=== PATIENT | female | born 2005 | race Caucasian/White ===

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

== ENCOUNTER 2023-01-01 18:58 | Outpatient (CLI) | payer OTHER, SELFPAY ==
[2023-01-01 19:09] VITALS: BMI 43.0
[2023-01-01 19:56] VITALS: BP 133/83; PULSE 108; RESP 18; TEMP 36.8; O2SAT 97; BMI 43.0
[2023-01-01 19:56] LABS: Microscopic, Urine URINE MICROSCOPIC (MICROSCOPIC)
[2023-01-01 19:57] LABS: Appearance,Urine CLEAR (Clear); Blood, Urine Negative (Negative); Color,Urine YELLOW (Yellow); Glucose,Urine (UA) Negative (Negative); Ketones,Urine TRACE (Negative); Leukocyte Esterase,Urine Negative (Negative); Nitrate,Urine Negative (Negative); Protein,Urine 3+ (Negative); Specific Gravity, Urine >= 1.030 (1.005-1.030)
[2023-01-01 19:58] LABS: Bilirubin,Urine 1+ (Negative)
[2023-01-01 20:10] LABS: Bacteria,Urine 2+ /lpf; Mucus,Urine 2+ /lpf; Yeast,Urine Occasional /lpf
[2023-01-01 20:13] LABS: Amphetamine/Metha Screen,Urine Negative ng/ml (<1000); Barbiturates Screen,Urine Negative ng/ml (<200); Benzodiazepines Screen,Urine Negative ng/ml (<200); Cannabinoid Screen,Urine Negative ng/ml (<50); Cocaine Screen,Urine Negative ng/ml (<300); Methadone Screen,Urine Negative ng/ml (<300); Opiate Screen,Urine Negative ng/ml (<300)
[2023-01-01 20:22] LABS: Phencyclidine Screen,Urine Negative ng/ml (<25)
== END 2023-01-01 20:15 | disposition home or self-care (01) ==
LOC: OBOUT 19:00 → OB 19:00
PROVIDERS: PCP Nurse Practitioner Family; Visit Provider Nurse Practitioner Obstetrics & Gynecology
DX: Z34.93 Encounter for supervision of normal pregnancy, unspecified, third trimester (principal); Z3A.39 39 weeks gestation of pregnancy
CPT/HCPCS: 59025; 80305; 81001; 87086; G0463

== ENCOUNTER 2023-01-02 10:19 | Outpatient (CLI) | payer OTHER, SELFPAY ==
[2023-01-02 10:28] VITALS: BMI 43.7
[2023-01-02 10:43] VITALS: BMI 43.7
== END 2023-01-02 11:42 | disposition home or self-care (01) ==
LOC: OBOUT 10:20 → OB 10:20
PROVIDERS: PCP Nurse Practitioner Family; Visit Provider Nurse Practitioner Obstetrics & Gynecology
DX: Z34.93 Encounter for supervision of normal pregnancy, unspecified, third trimester (principal); Z3A.39 39 weeks gestation of pregnancy
CPT/HCPCS: 59025; G0463

== ENCOUNTER 2023-01-03 16:52 | Inpatient (IN) | payer OTHER, SELFPAY ==
[2023-01-03 15:31] VITALS: BMI 43.2
[2023-01-03 15:32] VITALS: BP 121/68; PULSE 82; RESP 18; TEMP 36.9; O2SAT 100; BMI 43.2
[2023-01-03 17:00] LABS: Basophils % 0.3 % (0.1-2.0); Eosinophils # 0.1 K/mm3 (0.0-0.4); Eosinophils % 1.2 % (0.1-12.0); Hematocrit 32.8 % (37.0-47.0); Hemoglobin 11.2 g/dL (12.2-16.2); Lymphocytes # 2.1 K/mm3 (0.7-4.5); Lymphocytes % 19.1 % (10-50); Mean Corpuscular HGB Conc 34.3 g/dL (31.8-35.4); Mean Corpuscular Hemoglobin 26.4 pg (27.0-31.2); Mean Corpuscular Volume 77.2 fl (81-99); Mean Platelet Volume 9.3 fl (7.4-10.4); Monocytes # 0.5 K/mm3 (0.1-1.0); Neutrophils % 74.4 % (37.0-80.0); Platelet Count 306 K/mm3 (142-424); Red Blood Count 4.24 M/mm3 (4.20-5.40); Red Cell Distribution Width 15.6 % (11.5-17.5); White Blood Count 10.8 K/mm3 (4.5-13.0)
--- NOTE | 2023-01-03 17:03 | EXP.HP ---
History of Present Illness *Admission Date: 01/03/23 *Reason for visit:: Regular contractions *History of present illness: She is a 17-year-old 1 para 0 at 39 and 6 weeks gestational age. She has been seen a few times with contractions and today came in with regular contractions. She was found to be 2 to 3 cm dilated. She subsequently progressed to 6 cm. As result that she is admitted for delivery. [facility] Disclaimer: The information contained in this section may have been updated after the patient was seen, as this information can be updated by other users. Medical History Maternal obesity affecting , antepartum Screening for genetic disease carrier status Teen Family History Hyperlipidemia Hypertension Social History Smoking Status: Never smoker alcohol intake: never substance use type: denies use current occupational status: employed Travel in the last 8 weeks: None household members: family housing: house number of children: 0 Review of Systems Review of Systems Review of systems:: pertinent systems reviewed and negative unless documented below Meds Home Medications and Allergies Home Medications Medication Instructions Recorded Confirmed Type pediatric multivitamin no.76 2 tab PO DAILY Supplement 07/27/22 12/28/22 History (Flintstones Complete chewable tablet) New Prescriptions to Start Prescriptions: Allergies Allergy/AdvReac Type Severity Reaction Status Date / Time povidone-iodine Allergy Mild Verified 12/28/22 16:09 [From Betadine] soap [From Betadine] Allergy Mild Verified 12/28/22 16:09 Exam Data for Last 24 hours Vital signs and Labs for Last 24 Hours: Temp Pulse Resp BP Pulse Ox O2 Del Method 98.5 F 82 18 121/68 100 Room Air 01/03/23 15:32 01/03/23 15:32 01/03/23 15:32 01/03/23 15:32 01/03/23 15:32 01/03/23 15:32 Laboratory Results - last 24 hr 01/03/23 16:35: WBC 10.8, RBC 4.24, Hgb 11.2 L, Hct 32.8 L, MCV 77.2 L, MCH 26.4 L, MCHC 34.3, RDW 15.6, Plt Count 306, MPV 9.3, Neut % (Auto) 74.4, Lymph % (Auto) 19.1, Knox % (Auto) 5.0, Eos % (Auto) 1.2, Baso % (Auto) 0.3, Neut # (Auto) 8.0 H, Lymph # (Auto) 2.1, Knox # (Auto) 0.5, Eos # (Auto) 0.1, Baso # (Auto) 0.0 I & O for Last 24 hours: Intake & Output 01/01/23 01/02/23 01/03/23 01/04/23 11:59 11:59 11:59 11:59 Weight 244 lb Constitutional Constitutional: no acute distress *Routine HEENT Exam Head: Present normocephalic Eye: Present EOMI and PERRL ENT: Present mucous membranes moist *Routine Neck Exam Neck: Present supple; Absent lymphadenopathy *Routine Respiratory Exam Respiratory: Present CTA bilaterally *Routine Cardiovascular Exam Cardiovascular: Present RRR *Routine Abdominal Exam Abdominal: Present soft and normoactive bowel sounds; Absent tenderness *Routine Rectal Exam Rectal:: deferred *Routine Genitalia Exam Genitalia:: deferred *Routine Extremities Exam Extremities: Absent cyanosis, clubbing or edema *Routine Skin Exam Skin: Present warm; Absent rash *Routine Neurological Exam Neurological: Present alert and oriented X3 Assessment and Plan *Assessment and plan (1) Maternal obesity affecting , antepartum: Status: Acute Qualifiers: Obesity type affecting : unspecified obesity Qualified Code(s): O99.210 - Obesity complicating , unspecified trimester Category: Medical Code(s): O99.210 - Obesity complicating , unspecified trimester (2) Normal delivery: Status: Acute Category: Medical Code(s): O80 - Encounter for full-term uncomplicated delivery Plan She is admitted for delivery with regular contractions. She is now 6 cm dilated. We will expect a vaginal delivery.
[2023-01-03 17:19] LABS: Microscopic, Urine URINE MICROSCOPIC (MICROSCOPIC)
[2023-01-03 19:34] LABS: Appearance,Urine CLEAR (Clear); Bilirubin,Urine Negative (Negative); Blood, Urine TRACE-I (Negative); Color,Urine YELLOW (Yellow); Glucose,Urine (UA) Negative (Negative); Ketones,Urine Negative (Negative); Leukocyte Esterase,Urine Negative (Negative); Nitrate,Urine Negative (Negative); Protein,Urine 2+ (Negative); Specific Gravity, Urine >= 1.030 (1.005-1.030); Urobilinogen,Urine 0.2 EU/dl (0.2)
--- NOTE | 2023-01-03 19:35 | EXP.LABOR.NO ---
Labor Note Subjective: Date: 01/03/23 Time: 19:35 irregular contractions Objective: NST:: Reactive Contractions:: every 4-5 minutes Cervical Dilation:: 5-6 Effacement:: 100% Station: -2 Membranes: artificially ruptured Comment:: I ruptured membranes and there was clear fluid. Fetus: Monitoring?: Yes monitoring type:: External Assessment: Labor progressing?: Yes Cephalopelvic disproportion?: No Plan: Anesthesia for epidural?: No Continue to labor down?: Yes Plan for ?: No Continue to monitor?: Yes Start pushing?: No
[2023-01-03 20:04] LABS: Bacteria,Urine 1+ /lpf; WBC,Urine Occasional #/hpf (0-3)
--- NOTE | 2023-01-03 22:39 | EXP.LABOR.NO ---
Labor Note Subjective: Date: 01/03/23 Time: 22:39 regular contraction Objective: NST:: Non-reactive Contractions:: every 4-5 minutes Cervical Dilation:: 6 Effacement:: 90% Station: -2 Membranes: artificially ruptured Fetus: Monitoring?: Yes monitoring type:: External Assessment: Labor progressing?: No Cephalopelvic disproportion?: Yes Plan: Anesthesia for epidural?: No Continue to labor down?: No Plan for ?: Yes Continue to monitor?: Yes Start pushing?: No Comment:: She has been about 6 cm since 4 PM. She really has not changed. On examination her pelvis is extremely narrow. I have recommended that she has a . She will think about it and talk it over with her boyfriend and family.
--- NOTE | 2023-01-03 23:04 | EXP.ACUTE.PN ---
Subjective *Date: 01/03/23 *Time: 23:04 Interval history: She really has not progressed beyond 6 cm since about 4:00 this afternoon. Her pelvis is very narrow. We will go ahead with a primary lower segment transverse section. There will be a delay because of the current case in the operating room but as soon as the case is finished we will go ahead with the primary lower segment transverse section. Nonstress test is reactive. The baby does not appear to be in any distress at this point in time. I am comfortable that we can wait. We discussed the risks of surgery that includes bleeding, infection, injuries to the bowel and bladder. We discussed the rare risk of DVT. All questions were answered and consents were signed. Medical Exam Vital signs and Labs for Last 24 Hours: Vital Signs Temp Pulse Resp BP Pulse Ox O2 Del Method 01/03/23 15:32 98.5 F 82 18 121/68 100 Room Air Intake and Output 01/03/23 01/03/23 01/04/23 11:59 19:59 03:59 Other: Weight 244 lb Patient Weight 01/04/23 11:59 Weight 244 lb Laboratory Results - last 24 hr 01/03/23 15:15: Urine Color Yellow, Urine Appearance Clear, Urine pH 6.0, Ur Specific Williams >= 1.030, Urine Protein 2+, Urine Glucose (UA) Negative, Urine Ketones Negative, Urine Blood Trace-i, Urine Nitrate Negative, Urine Bilirubin Negative, Urine Urobilinogen 0.2, Ur Leukocyte Esterase Negative, Urine RBC 3-5, Urine WBC Occasional, Ur Squamous Epith Cells 5-10, Urine Bacteria 1+ 01/03/23 16:35: WBC 10.8, RBC 4.24, Hgb 11.2 L, Hct 32.8 L, MCV 77.2 L, MCH 26.4 L, MCHC 34.3, RDW 15.6, Plt Count 306, MPV 9.3, Neut % (Auto) 74.4, Lymph % (Auto) 19.1, [place] % (Auto) 5.0, Eos % (Auto) 1.2, Baso % (Auto) 0.3, Neut # (Auto) 8.0 H, Lymph # (Auto) 2.1, [place] # (Auto) 0.5, Eos # (Auto) 0.1, Baso # (Auto) 0.0, Blood Type O Positive, Antibody Screen Negative I & O for Labs for Last 24 Hours: Intake & Output 01/01/23 01/02/23 01/03/23 01/04/23 11:59 11:59 11:59 11:59 Weight 244 lb Head: Present atraumatic Neck: Present normal inspection Assessment and Plan *Assessment and plan (1) pelvic disproportion antepartum: Status: Acute Category: Medical Code(s): O33.9 - Maternal care for disproportion, unspecified (2) delivery delivered: Status: Acute Category: Medical Code(s): O82 - Encounter for delivery without indication (3) Maternal obesity affecting , antepartum: Status: Acute Qualifiers: Obesity type affecting : unspecified obesity Qualified Code(s): O99.210 - Obesity complicating , unspecified trimester Category: Medical Code(s): O99.210 - Obesity complicating , unspecified trimester Plan We will plan for a primary lower segment transverse section. Risks and benefits were discussed with the patient and her family.
[2023-01-03 23:09] LABS: Anion Gap 12.4 mEq/L (5-15); Blood Urea Nitrogen 11 mg/dl (7-17); Calcium 9.2 mg/dl (8.4-10.2); Carbon Dioxide 19 mmol/L (22.0-30.0); Chloride 107 mmol/L (98-107); Creatinine Clearance Estimated 179 mL/min (50-200); Estimated Glomerular Filt Rate 206 ml/min (>60); GFR (African American) 249 ML/MIN (>60); Glucose 72 mg/dl (74-100); Potassium 4.4 mmoL/L (3.5-5.1); Sodium 134 mmol/L (136-145)
[2023-01-04] VITALS (7 sets, daily range): BP systolic 135–154; BP diastolic 63–87; PULSE 10–125; RESP 16–22; TEMP 36.2–37.5; O2SAT 97–100
[2023-01-04 00:54] LABS: POC Glucose,Bedside 90 (70-110)
--- NOTE | 2023-01-04 01:48 | EXP.ANES.CKL ---
[facility] Disclaimer: The information contained in this section may have been updated after the patient was seen, as this information can be updated by other users. Medical History Maternal obesity affecting , antepartum Screening for genetic disease carrier status Teen Family History Hyperlipidemia Hypertension Social History Smoking Status: Never smoker alcohol intake: never substance use type: denies use current occupational status: employed Travel in the last 8 weeks: None household members: family housing: house number of children: 0 [facility] Anesthesia Checklist Patient Identification Patient Identification: Arm Band Structural Data Admitted From: Inpatient Planned Operative Procedure/s: Labor Epidural Consent for Planned Operative Procedure(s) Verified: Yes Verified Documents: Surgical Consent and History and Physical NPO Status Verified Time NPO: 00:00 Additional verifications Anesthesia Reactions: No Airway Assessment Mallampati Score:: Class II C-Spine Mobility Assessed: Yes TMJ Mobility Assessed: Yes Dentition: Good Dentition Neurological Assessment Level of Consciousness: Awake and Alert Anesthesia Plan Anesthesia Risk discussed: Yes Anesthesia Plan: Verified ASA Class: II Anesthesia Type: Epidural
--- NOTE | 2023-01-04 04:16 | EXP.OP.NOTE ---
Date of procedure: 01/04/23 Pre-op Diagnosis:: Term , pelvic disproportion, teenage Post-op Diagnosis:: Term , pelvic disproportion, teenage , occiput posterior Procedure performed:: Primary lower segment transverse section Surgeon:: Rodney Joseph MD Machine Setup Operator(s):: Dr. Vega CAMPAIGN CONSULTANT:: Other (Jesus Medina) Anesthesia: epidural Estimated blood loss (mL): 900 Clinical Note:: She is a 17-year-old 1 para 0 at 40 weeks gestational age. She came in in active labor in the afternoon of January 03, 2023. She subsequently failed to progress beyond 6 to 7 cm and pelvic disproportion was diagnosed. Her pelvis was extremely narrow. Operative findings:: She delivered a liveborn female child at 3:30 AM on the morning of January 04, 2023. The baby weighed 7 pounds 2 ounces and was 19 inches long. She had Apgars of 8 at 1 minute and 9 at 5 minutes. Ovaries and tubes appeared normal. There was a small hydatid of morganii on the left distal tube that had a long pedicle so I elected to remove this and send it to pathology. Operative note:: She was taken to the operating room where epidural anesthesia was found be adequate. She was prepped and draped in normal sterile fashion in the supine position. A Fernandez catheter was in the bladder. A Pfannenstiel skin incision was made with knife then carried through to the underlying layer of fascia with cautery. The fascia was opened in the midline with cautery and extended laterally using Molina scissors. [place] clamps were applied to the superior aspect of the fascial incision which was tented up and the underlying rectus muscles dissected off using cautery. The [place] clamps were then applied to the inferior aspect of the fascial incision which in a similar fashion was tented up and the underlying rectus muscles dissected off using cautery. The rectus muscles were then in the midline, the peritoneum identified, and entered bluntly. An Christiano retractor was then inserted into the abdominal cavity. Transverse incision was made through the uterine muscle above the bladder flap to the amnion. This incision was then extended superiorly and inferiorly using the fingers as traction. The amnion was entered sharply with knife. There was clear amniotic fluid. The 's head was then delivered atraumatically. A loose nuchal cord was then reduced. This was followed by the anterior shoulder and the rest of the 's body atraumatically. The oropharynx and nasopharynx were bulb suctioned. The infant was vigorous so we allowed the cord to continue to pulsate for approximately 1 minute. The cord was then doubly clamped and cut. The infant was then handed off to Dr. Muro who assigned Apgars of 8 at 1 minute and 9 at 5 minutes. We then obtained cord blood. Using gentle traction on the cord and fundal massage I was able to easily deliver the placenta intact. It had a normal three-vessel cord. The uterus was then cleared of clots and debris . The uterine incision was then closed using running 0 Vicryl suture in a locked fashion. A second layer of the same suture was used to imbricate the first layer. The bladder peritoneum was then closed using running 2-0 Vicryl suture in a locked fashion. Prior to closure of the peritoneum I inserted a large piece of Gelfoam along the bladder incision. The gutters and cul-de-sac were then cleared of clots and debris . Once again hemostasis was assured. The fascia was closed using running #1 Vicryl suture. The subcutaneous tissues were then irrigated with warm water followed by closure Sohan's fascia using running 2-0 Monocryl suture. The skin was closed with dissolvable mattie. I then cleaned the skin with Hibiclens. Sterile dressings were applied. We then performed a tap block under ultrasound guidance. She tolerated the procedure well and was taken to the recovery room in excellent condition. All sponge, instrument and
[2023-01-04 06:47] LABS: Hematocrit 30.9 % (37.0-47.0); Hemoglobin 10.2 g/dL (12.2-16.2); Lymphocytes # 1.2 K/mm3 (0.7-4.5); Lymphocytes % 7.3 % (10-50); Mean Corpuscular Hemoglobin 25.2 pg (27.0-31.2); Mean Corpuscular Volume 76.2 fl (81-99); Mean Platelet Volume 9.3 fl (7.4-10.4); Monocytes # 0.5 K/mm3 (0.1-1.0); Neutrophils # 14.8 K/mm3 (1.8-7.8); Neutrophils % 89.5 % (37.0-80.0); Platelet Count 299 K/mm3 (142-424); Red Blood Count 4.06 M/mm3 (4.20-5.40); Red Cell Distribution Width 15.5 % (11.5-17.5); White Blood Count 16.5 K/mm3 (4.5-13.0)
[2023-01-04 06:51] LABS: MANUAL DIFFERENTIAL MANUAL DIFFERENTIAL (MANUAL DIFF)
--- NOTE | 2023-01-04 06:55 | SUR.PHASEI ---
0423- pt shivering upon arrival to pacu. #20 to left AC w/LR infusing 40 units of pitocin. QBL @998. @ BS and notified. No new orders received. 0430-pt eating ice chips tolerated well. Pt no longer shivering. Very alert and talking. Moving lower extremities easily. 0440- 375 brown/yellow/ clear urine emptied from f/c. 0453-Detailed report called to Sheila CALDERÓN. Pt transported via bed to OB per Mirtha CALDERÓN & Crow. Left in care of Chari. Family @ BS.
--- NOTE | 2023-01-04 07:01 | SUR.OPER ---
0330-viable female born
[2023-01-04 07:20] LABS: Lymphocytes % 3 % (10-50); Monocytes % 2 % (2-9); Neutrophils % 95 % (42-76); Platelet Estimate Normal; RBC Morphology Normal; Total Cells Counted 100
--- NOTE | 2023-01-04 14:30 | EXP.ANES.I ---
[facility] Anesthesia Record Part I Anesthesia Record I Intake, IV Amount: 900 Hydration: Adequate Estimated blood loss (mL): 600 Urine output (mL): 200 Blood Pressure: 140/80 SaO2: 97 Pulse Rate: 108 Airway Patency: Patent Respiratory Rate: 18 Temperature: 97.4 F Pain scale (0-10): 0 Nausea: No Vomiting: No Patient is:: Awake and Stable Stable to PACU at:: 04:23 Comments:: Procedure and Anesthesia part 1 performed by Jeremie Medina CRNA
--- NOTE | 2023-01-04 14:32 | P.PNANES_ITS ---
[facility] Anesthesia Record Part II Anesthesia Record Part II Discharge Time: 04:53 Destination: Obstetric PACU nurse assessment reviewed?: Yes Patient Condition:: Good Anesthesia Complications:: None Swallowing reflex intact?: Yes Airway Patency: Patent Cyanosis?: No Blood Pressure: 154/83 SaO2: 99 Respiratory Rate: 22 Pulse Rate: 10 Temperature: 97.4 F Mental Status: Alert & Oriented Pain level:: 0 Nausea and/or vomitting:: None Intake, IV Amount: 0 Hydration: Adequate
[2023-01-04 15:23] LABS: Amphetamine/Metha Screen,Urine Negative ng/ml (<1000); Barbiturates Screen,Urine Negative ng/ml (<200); Benzodiazepines Screen,Urine Negative ng/ml (<200); Cannabinoid Screen,Urine Negative ng/ml (<50); Cocaine Screen,Urine Negative ng/ml (<300); Methadone Screen,Urine Negative ng/ml (<300); Opiate Screen,Urine Negative ng/ml (<300); Phencyclidine Screen,Urine Negative ng/ml (<25)
--- NOTE | 2023-01-05 05:23 | EXP.ACUTE.PN ---
Subjective *Date: 01/05/23 *Time: 05:23 Interval history: POD # 1 s/p PLTCS She is doing okay. She is exhausted. Pain is controlled. Appropriate lochia. She is breast and formula feeding. Voiding without difficulty and passing flatus. Tolerating regular diet. Denies fever/chills, chest pain and shortness of breath. No headaches or vision changes. Medical Exam Vital signs and Labs for Last 24 Hours: Vital Signs Temp Pulse Pulse Resp BP BP Pulse Ox 01/04/23 20:30 99.5 F 125 H 18 135/63 100 01/04/23 14:33 22 01/04/23 14:32 97.4 F L 108 H 18 140/80 O2 Del Method 01/04/23 20:30 Room Air 01/04/23 14:33 01/04/23 14:32 Intake and Output 01/04/23 01/04/23 01/05/23 15:59 23:59 07:59 Intake Total 900 / 900 Balance 900 / 300 Intake: Intake, Total IV Amount 900 / 900 Laboratory Results - last 24 hr 01/03/23 13:15: Urine Opiates Screen Negative, Urine Methadone Screen Negative, Ur Barbituates Screen Negative, Ur Phencyclidine Scrn Negative, Ur Amphetamines Screen Negative, U Benzodiazepines Scrn Negative, Urine Cocaine Screen Negative, U Marijuana (THC) Screen Negative 01/03/23 16:35: Blood Type O Positive, Antibody Screen Negative, Crossmatch (AHG) See Detail 01/04/23 06:14: WBC 16.5 H D, RBC 4.06 L, Hgb 10.2 L, Hct 30.9 L, MCV 76.2 L, MCH 25.2 L, MCHC 33.0, RDW 15.5, Plt Count 299, MPV 9.3, Neut % (Auto) 89.5 H, Lymph % (Auto) 7.3 L, [place] % (Auto) 3.0, Eos % (Auto) 0.0 L, Baso % (Auto) 0.0 L, Neut # (Auto) 14.8 H, Lymph # (Auto) 1.2, [place] # (Auto) 0.5, Eos # (Auto) 0.0, Baso # (Auto) 0.0, Total Counted 100, Neutrophils % (Manual) 95 H, Lymphocytes % (Manual) 3 L, Monocytes % (Manual) 2, Platelet Estimate Normal, RBC Morphology Normal I & O for Labs for Last 24 Hours: Intake & Output 01/02/23 01/03/23 01/04/23 01/05/23 23:59 23:59 23:59 23:59 Intake Total 900 / 900 Output Total 600 / 600 Balance 300 / 300 Weight 244 lb Head: Present atraumatic and normocephalic ENT: Present normal exam Neck: Present full ROM Respiratory: Present CTA bilaterally and normal respiratory effort Cardiac: Present Reg Rate and Rhythm GI: Present soft, tenderness (appropriate tenderness to palpation) and normal bowel sounds; Absent distention Comments:: Uterine fundus firm and below umbilicus, pfannenstiel incision clean/dry/intact Rectal (female): Present deferred (female): Present deferred Extremities: Present full ROM; Absent edema or calf tenderness Neuro: Present alert, awake, oriented x 3 and moves all extremities Additional Findings:: Patient has flat affect Assessment and Plan *Assessment and plan (1) delivery delivered: Status: Acute Category: Medical Code(s): O82 - Encounter for delivery without indication (2) pelvic disproportion antepartum: Status: Acute Category: Medical Code(s): O33.9 - Maternal care for disproportion, unspecified (3) Maternal obesity affecting , antepartum: Status: Acute Qualifiers: Obesity type affecting : unspecified obesity Qualified Code(s): O99.210 - Obesity complicating , unspecified trimester Category: Medical Code(s): O99.210 - Obesity complicating , unspecified trimester (4) Teen : Status: Acute Category: Medical (5) Acute blood loss anemia: Status: Acute Category: Medical Code(s): D62 - Acute posthemorrhagic anemia Plan Continue routine care Encouraged increased ambulation Will continue to evaluate for signs of blues. This morning she appears exhausted and has a flat affect. She is not wanting to get up and move. Venofer 200 mg IV x 1 dose ordered
[2023-01-05 07:19] LABS: Basophils % 0.2 % (0.1-2.0); Eosinophils % 0.1 % (0.1-12.0); Hematocrit 26.4 % (37.0-47.0); Hemoglobin 8.4 g/dL (12.2-16.2); Lymphocytes # 1.7 K/mm3 (0.7-4.5); Lymphocytes % 16.6 % (10-50); Mean Corpuscular Hemoglobin 24.9 pg (27.0-31.2); Mean Corpuscular Volume 77.8 fl (81-99); Mean Platelet Volume 9.5 fl (7.4-10.4); Monocytes # 0.5 K/mm3 (0.1-1.0); Monocytes % 5.1 % (1.7-9.3); Neutrophils # 8.2 K/mm3 (1.8-7.8); Platelet Count 250 K/mm3 (142-424); Red Blood Count 3.39 M/mm3 (4.20-5.40); Red Cell Distribution Width 15.9 % (11.5-17.5); White Blood Count 10.5 K/mm3 (4.5-13.0)
[2023-01-05 08:24] VITALS: BP 137/75; PULSE 121; RESP 17; TEMP 37.1; O2SAT 99
[2023-01-05 16:04] VITALS: BP 143/83; PULSE 141; RESP 23; TEMP 38.8; O2SAT 98
--- NOTE | 2023-01-05 16:29 | EXP.MED.CON ---
History of Present Illness *Admission Date: 01/03/23 *Reason for visit:: Delivery, Anemia due to blood loss, SIRS *History of present illness: Ms. Odom is a 17-year-old female now . Delivered via section at 39 weeks and 6 days. Delivery complicated by postdelivery hemorrhage. Did not necessitate any transfusion at this time however. Has been tachycardic since admission but developed fever this afternoon to 102. Medicine was consulted to assist with evaluation given her SIRS symptoms. On interview, patient denies nausea, vomiting, diarrhea, chest pain, shortness of breath, congestion or sore throat. She had a headache while her fever was elevated. No known sick contacts. No burning with urination. 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 Is eating dinner during my interview. Denies any increased discharge from surgical incisions or increased vaginal discharge. Otherwise feels well. [facility] Disclaimer: The information contained in this section may have been updated after the patient was seen, as this information can be updated by other users. Medical History (Updated 01/05/23 @ 18:07 by Jesus Rosa MD) Acute blood loss anemia Maternal obesity affecting , antepartum Screening for genetic disease carrier status Teen Family History Hyperlipidemia Hypertension Social History Smoking Status: Never smoker alcohol intake: never substance use type: denies use current occupational status: employed Travel in the last 8 weeks: None household members: family housing: house number of children: 0 Review of Systems Review of Systems Review of systems (narrative): 14 point review of systems performed, pertinent positives and negatives as per HPI Exam Data for Last 24 hours Vital signs and Labs for Last 24 Hours: Temp Pulse Resp BP Pulse Ox O2 Del Method 102 F H 141 H 23 143/83 H 98 Room Air 01/05/23 16:04 01/05/23 16:04 01/05/23 16:04 01/05/23 16:04 01/05/23 16:04 01/05/23 16:04 Laboratory Results - last 24 hr 01/05/23 06:54: WBC 10.5 D, RBC 3.39 L, Hgb 8.4 L, Hct 26.4 L, MCV 77.8 L, MCH 24.9 L, MCHC 32.0, RDW 15.9, Plt Count 250, MPV 9.5, Neut % (Auto) 78.0, Lymph % (Auto) 16.6, [place] % (Auto) 5.1, Eos % (Auto) 0.1, Baso % (Auto) 0.2, Neut # (Auto) 8.2 H, Lymph # (Auto) 1.7, [place] # (Auto) 0.5, Eos # (Auto) 0.0, Baso # (Auto) 0.0 I & O for Last 24 hours: Intake & Output 01/02/23 01/03/23 01/04/23 01/05/23 23:59 23:59 23:59 23:59 Intake Total 900 / 900 Output Total 600 / 600 Balance 300 / 300 Weight 110.677 kg Constitutional Constitutional: no acute distress and obese *Routine HEENT Exam Head: Present normocephalic Eye: Present EOMI and PERRL ENT: Present mucous membranes moist *Routine Neck Exam Neck: Present supple; Absent lymphadenopathy *Routine Respiratory Exam Respiratory: Present CTA bilaterally; Absent rhonchi, wheezes or crackles *Routine Cardiovascular Exam Cardiovascular: Present tachycardia; Absent murmur *Routine Abdominal Exam Abdominal: Present soft, normoactive bowel sounds and tenderness (In lower abdomen); Absent distended or rebound *Routine Rectal Exam Patient deferred: visual exam *Routine Exam Patient deferred: external exam *Routine Extremities Exam Extremities: Absent cyanosis, clubbing or edema *Routine Skin Exam Skin: Present warm; Absent rash *Routine Neurological Exam Neurological: Present alert, oriented X3 and moving all extremities; Absent altered mental status Meds Home Medications and Allergies Home Medications Medication Instructions Recorded Confirmed Type pediatric multivitamin no.76 2 tab PO DAILY Supplement 07/27/22 01/04/23 History (Flintstones Complete chewable tablet) New Prescriptions to Start Prescriptions: Allergies Allerg
[2023-01-05 16:47] LABS: MANUAL DIFFERENTIAL MANUAL DIFFERENTIAL (MANUAL DIFF)
[2023-01-05 16:49] LABS: Coronavirus 19, PCR Not Detected (NotDetected); Influenza A, PCR Not Detected (NotDetected); Influenza B, PCR Not Detected (NotDetected)
[2023-01-05 16:52] LABS: Basophils % 0.1 % (0.1-2.0); Eosinophils % 0.3 % (0.1-12.0); Hematocrit 26.3 % (37.0-47.0); Hemoglobin 8.4 g/dL (12.2-16.2); Lymphocytes # 0.9 K/mm3 (0.7-4.5); Lymphocytes % 9.6 % (10-50); Mean Corpuscular HGB Conc 31.9 g/dL (31.8-35.4); Mean Corpuscular Volume 78.2 fl (81-99); Mean Platelet Volume 9.5 fl (7.4-10.4); Monocytes # 0.4 K/mm3 (0.1-1.0); Monocytes % 3.7 % (1.7-9.3); Neutrophils # 8.4 K/mm3 (1.8-7.8); Neutrophils % 86.3 % (37.0-80.0); Platelet Count 264 K/mm3 (142-424); Red Blood Count 3.37 M/mm3 (4.20-5.40); White Blood Count 9.7 K/mm3 (4.5-13.0)
[2023-01-05 16:56] VITALS: TEMP 37.8
[2023-01-05 17:03] LABS: Chloride 104 mmol/L (98-107); Sodium 134 mmol/L (136-145)
[2023-01-05 17:04] LABS: Potassium 3.3 mmoL/L (3.5-5.1)
[2023-01-05 17:06] LABS: Alanine Aminotransferase 17 U/L (12-78); Albumin Level 2.7 g/dl (3.5-5.0); Albumin/Globulin Ratio 0.9 (1.1-1.8); Alkaline Phosphatase 162 U/L (38-126); Anion Gap 11.3 mEq/L (5-15); Aspartate Amino Transferase 23 U/L (14-36); Bilirubin,Total 0.2 mg/dl (0.2-1.3); Blood Urea Nitrogen 9 mg/dl (7-17); Calcium 8.9 mg/dl (8.4-10.2); Carbon Dioxide 22 mmol/L (22.0-30.0); Creatinine Clearance Estimated 143 mL/min (50-200); Estimated Glomerular Filt Rate 159 ml/min (>60); GFR (African American) 192 ML/MIN (>60); Glucose 83 mg/dl (74-100); Total Protein,Serum 5.7 g/dl (6.3-8.2)
[2023-01-05 17:07] LABS: Lactic Acid 1.3 mmol/L (0.7-2.1)
--- NOTE | 2023-01-05 17:09 | EXP.ACUTE.PN ---
Subjective *Date: 01/05/23 *Time: 17:09 Interval history: Patient has developed fever postoperatively. She is just 1 day postop from a . Her fever was 102 degrees. She also was tachycardic with her heart rate in the 140s. She is she denies any chest pain, shortness of breath or dysuria. She denies any calf tenderness. She denies any breast engorgement. She says that she has a headache. Medical Exam Vital signs and Labs for Last 24 Hours: Vital Signs Temp Pulse Resp BP Pulse Ox O2 Del Method 01/05/23 16:56 100.1 F H 01/05/23 16:04 102 F H 141 H 23 143/83 H 98 Room Air 01/05/23 08:24 98.7 F 121 H 17 137/75 99 Room Air 01/04/23 20:30 99.5 F 125 H 18 135/63 100 Room Air Laboratory Results - last 24 hr 01/05/23 06:54: WBC 10.5 D, RBC 3.39 L, Hgb 8.4 L, Hct 26.4 L, MCV 77.8 L, MCH 24.9 L, MCHC 32.0, RDW 15.9, Plt Count 250, MPV 9.5, Neut % (Auto) 78.0, Lymph % (Auto) 16.6, [place] % (Auto) 5.1, Eos % (Auto) 0.1, Baso % (Auto) 0.2, Neut # (Auto) 8.2 H, Lymph # (Auto) 1.7, [place] # (Auto) 0.5, Eos # (Auto) 0.0, Baso # (Auto) 0.0 01/05/23 16:35: WBC 9.7, RBC 3.37 L, Hgb 8.4 L, Hct 26.3 L, MCV 78.2 L, MCH 25.0 L, MCHC 31.9, RDW 16.0, Plt Count 264, MPV 9.5, Neut % (Auto) 86.3 H, Lymph % (Auto) 9.6 L, [place] % (Auto) 3.7, Eos % (Auto) 0.3, Baso % (Auto) 0.1, Neut # (Auto) 8.4 H, Lymph # (Auto) 0.9, [place] # (Auto) 0.4, Eos # (Auto) 0.0, Baso # (Auto) 0.0, Sodium 134 L, Potassium 3.3 L D, Chloride 104, Carbon Dioxide 22, Anion Gap 11.3, BUN 9, Creatinine 0.50 L D, Estimated Creat Clear 143, Estimated GFR 159, Est GFR ( Amer) 192 D, Glucose 83, Calcium 8.9, Total Bilirubin 0.2, AST 23, ALT 17, Alkaline Phosphatase 162 H, Total Protein 5.7 L, Albumin 2.7 L, Globulin 3.0, Albumin/Globulin Ratio 0.9 L I & O for Labs for Last 24 Hours: Intake & Output 01/03/23 01/04/23 01/05/23 01/06/23 11:59 11:59 11:59 11:59 Intake Total 900 / 900 Output Total 600 / 600 Balance -600 / -600 900 / 900 Weight 244 lb Head: Present atraumatic ENT: Present normal exam Neck: Present normal inspection Respiratory: Present normal respiratory effort; Absent accessory muscle use Cardiac: Present Reg Rate and Rhythm and Tachycardia GI: Present soft and tenderness (She says that she is tender in her abdomen); Absent distention Comments:: Although she is tender in the abdomen she says that it is less tender than it was yesterday. Her incision is clean and dry. The incision is nontender. She did have a T AP block yesterday. Rectal (female): Present deferred (female): Present deferred Extremities: Present normal inspection and full ROM; Absent tenderness or calf tenderness Skin: Present intact; Absent cyanosis, erythema, pallor or mottling Comment:: Her hemoglobin this morning was 8.4 and she is pale appearing. Neuro: Present alert and awake Assessment and Plan *Assessment and plan (1) delivery delivered: Status: Acute Category: Medical Code(s): O82 - Encounter for delivery without indication (2) Acute blood loss anemia: Status: Acute Category: Medical Code(s): D62 - Acute posthemorrhagic anemia (3) Postoperative fever: Status: Acute Category: Medical Code(s): R50.82 - Postprocedural fever Plan We will do a complete septic workup. We have consulted Dr. Rosa. We also did testing for flu and COVID. Since I was initially called her fever has come down to 101 degrees. The patient says that she feels a little better. We will continue with the workup at this point in time.
[2023-01-05 17:20] LABS: Hypochromasia 2+; Lymphocytes % 15 % (10-50); Microcytosis 1+; Monocytes % 2 % (2-9); Neutrophils % 83 % (42-76); Platelet Estimate Normal; Total Cells Counted 100
[2023-01-05 17:40] LABS: Microscopic, Urine URINE MICROSCOPIC (MICROSCOPIC)
[2023-01-05 17:43] LABS: Appearance,Urine SL CLOUDY (Clear); Bilirubin,Urine Negative (Negative); Blood, Urine 3+ (Negative); Color,Urine ORANGE (Yellow); Glucose,Urine (UA) Negative (Negative); Ketones,Urine Negative (Negative); Leukocyte Esterase,Urine 2+ (Negative); Nitrate,Urine Negative (Negative); Protein,Urine 2+ (Negative); Urobilinogen,Urine 0.2 EU/dl (0.2)
[2023-01-05 18:07] LABS: Bacteria,Urine Trace /lpf; RBC,Urine 50-100 #/hpf (0-3)
[2023-01-05 20:00] VITALS: BP 142/77; PULSE 115; RESP 18; TEMP 37.5; O2SAT 100
[2023-01-06] VITALS: TEMP 36.6
--- NOTE | 2023-01-06 09:14 | EXP.MED.FU ---
Subjective *Date: 01/06/23 *Time: 09:14 Interval history: Patient has done well overnight. No fevers documented. Labs obtained yesterday showed normal white cell count. Cultures negative at this time. Clinically patient appears well. Tolerating p.o. intake. No nausea, vomiting, headache, chest pain, shortness of breath, dysuria, redness at surgical site Exam Data for Last 24 hours Vital signs and Labs for Last 24 Hours: Temp Pulse Resp BP Pulse Ox O2 Del Method 98 F 115 H 18 142/77 H 100 Room Air 01/06/23 00:00 01/05/23 20:00 01/05/23 20:00 01/05/23 20:00 01/05/23 20:00 01/05/23 20:00 Laboratory Results - last 24 hr 01/05/23 16:35: WBC 9.7, RBC 3.37 L, Hgb 8.4 L, Hct 26.3 L, MCV 78.2 L, MCH 25.0 L, MCHC 31.9, RDW 16.0, Plt Count 264, MPV 9.5, Neut % (Auto) 86.3 H, Lymph % (Auto) 9.6 L, [place] % (Auto) 3.7, Eos % (Auto) 0.3, Baso % (Auto) 0.1, Neut # (Auto) 8.4 H, Lymph # (Auto) 0.9, [place] # (Auto) 0.4, Eos # (Auto) 0.0, Baso # (Auto) 0.0, Total Counted 100, Neutrophils % (Manual) 83 H, Lymphocytes % (Manual) 15, Monocytes % (Manual) 2, Platelet Estimate Normal, Hypochromasia 2+, Microcytosis 1+, Sodium 134 L, Potassium 3.3 L D, Chloride 104, Carbon Dioxide 22, Anion Gap 11.3, BUN 9, Creatinine 0.50 L D, Estimated Creat Clear 143, Estimated GFR 159, Est GFR ( Amer) 192 D, Glucose 83, Lactate 1.3, Calcium 8.9, Total Bilirubin 0.2, AST 23, ALT 17, Alkaline Phosphatase 162 H, Total Protein 5.7 L, Albumin 2.7 L, Globulin 3.0, Albumin/Globulin Ratio 0.9 L 01/05/23 16:45: SARS-CoV-2 (PCR) Not detected, Influenza A Untype (PCR) Not detected, Influenza Type B (PCR) Not detected 01/05/23 16:58: Urine Color [place], Urine Appearance Sl cloudy, Urine pH 6.0, Ur Specific [place] 1.010, Urine Protein 2+, Urine Glucose (UA) Negative, Urine Ketones Negative, Urine Blood 3+, Urine Nitrate Negative, Urine Bilirubin Negative, Urine Urobilinogen 0.2, Ur Leukocyte Esterase 2+ A, Urine RBC 50-100, Urine WBC 5-10, Ur Squamous Epith Cells 5-10, Urine Bacteria Trace I & O for Last 24 hours: Intake & Output 01/03/23 01/04/23 01/05/23 01/06/23 23:59 23:59 23:59 23:59 Intake Total 900 / 900 Output Total 600 / 600 Balance 300 / 300 Weight 110.677 kg Constitutional Constitutional: no acute distress and obese *Routine HEENT Exam Head: Present normocephalic Eye: Present EOMI and PERRL ENT: Present mucous membranes moist *Routine Neck Exam Neck: Present supple; Absent lymphadenopathy *Routine Respiratory Exam Respiratory: Present CTA bilaterally; Absent rhonchi, wheezes or crackles *Routine Cardiovascular Exam Cardiovascular: Present tachycardia; Absent murmur *Routine Abdominal Exam Abdominal: Present soft, normoactive bowel sounds and tenderness (In lower abdomen); Absent distended or rebound *Routine Rectal Exam Patient deferred: visual exam *Routine Exam Patient deferred: external exam *Routine Extremities Exam Extremities: Absent cyanosis, clubbing or edema *Routine Skin Exam Skin: Present warm; Absent rash *Routine Neurological Exam Neurological: Present alert, oriented X3 and moving all extremities; Absent altered mental status Assessment and Plan *Assessment and plan (1) SIRS (systemic inflammatory response syndrome): Status: Acute Category: Medical Code(s): R65.10 - Systemic inflammatory response syndrome (SIRS) of non-infectious origin without acute organ dysfunction (2) Acute blood loss anemia: Status: Acute Category: Medical Code(s): D62 - Acute posthemorrhagic anemia (3) delivery delivered: Status: Acute Category: Medical Code(s): O82 - Encounter for delivery without indication (4) Obesity: Status: Acute Qualifiers: Obesity type: unspecified obesity type Obesity classification: adult class 3 (BMI >= 40) Serious obesity comorbidity presence: without serious comorbidity Body mass index: BMI 40.0-44.9 Qualifi
--- NOTE | 2023-01-06 10:51 | EXP.DC.SUM ---
General Admission date:: 01/03/23 Discharge date: 01/06/23 HPI HPI HPI: POD # 2 s/p PLTCS She is feeling well overall. Pain controlled. She is breast and formula feeding. Light lochia. She had an episode of a fever last night that resolved after Tylenol. She admits to chills at that time but no other symptoms. States she feels well this morning. Voiding without difficulty and passing flatus. Tolerating regular diet. Ambulating well ad thanh. Denies signs of depression and anxiety. Hospital Course Hospital Course Hospital Course: Ms Rosie Odom is a 17-year-old 1/ para 0 at 39 and 6 weeks gestational age. She presented to L&D with complaint of regular contractions. She was found to be 2 to 3 cm dilated. She subsequently progressed to 6 cm. She underwent primary on 01/14/23 for failure to progress. She delivered a live female baby, baby's name is Hira, weighing 7 lb 2 oz. APGARs 8, 9. EBL 900 mL. She did well postoperatively. Pain controlled with medication. She is breast and formula feeding. Light lochia. She had an isolated fever, 102, at 1604 yesterday, 01/05/23. Evaluation for fever was negative. WBC was within normal limits. She was given 1 gram rocephin and Tylenol. Hospitalist was consulted. Cultures pending. She is feeling well and desires to go home. She is voiding without difficulty and passing flatus. Tolerating regular diet. Denies headache and vision changes. No further fever/chills. No chest pain or shortness of breath. Ambulating well ad thanh. Exam Data for Last 24 hours Vital signs and Labs for Last 24 Hours: Temp Pulse Resp BP Pulse Ox O2 Del Method 98 F 115 H 18 142/77 H 100 Room Air 01/06/23 00:00 01/05/23 20:00 01/05/23 20:00 01/05/23 20:00 01/05/23 20:00 01/05/23 20:00 Laboratory Results - last 24 hr 01/05/23 16:35: WBC 9.7, RBC 3.37 L, Hgb 8.4 L, Hct 26.3 L, MCV 78.2 L, MCH 25.0 L, MCHC 31.9, RDW 16.0, Plt Count 264, MPV 9.5, Neut % (Auto) 86.3 H, Lymph % (Auto) 9.6 L, [place] % (Auto) 3.7, Eos % (Auto) 0.3, Baso % (Auto) 0.1, Neut # (Auto) 8.4 H, Lymph # (Auto) 0.9, [place] # (Auto) 0.4, Eos # (Auto) 0.0, Baso # (Auto) 0.0, Total Counted 100, Neutrophils % (Manual) 83 H, Lymphocytes % (Manual) 15, Monocytes % (Manual) 2, Platelet Estimate Normal, Hypochromasia 2+, Microcytosis 1+, Sodium 134 L, Potassium 3.3 L D, Chloride 104, Carbon Dioxide 22, Anion Gap 11.3, BUN 9, Creatinine 0.50 L D, Estimated Creat Clear 143, Estimated GFR 159, Est GFR ( Amer) 192 D, Glucose 83, Lactate 1.3, Calcium 8.9, Total Bilirubin 0.2, AST 23, ALT 17, Alkaline Phosphatase 162 H, Total Protein 5.7 L, Albumin 2.7 L, Globulin 3.0, Albumin/Globulin Ratio 0.9 L 01/05/23 16:45: SARS-CoV-2 (PCR) Not detected, Influenza A Untype (PCR) Not detected, Influenza Type B (PCR) Not detected 01/05/23 16:58: Urine Color [place], Urine Appearance Sl cloudy, Urine pH 6.0, Ur Specific [place] 1.010, Urine Protein 2+, Urine Glucose (UA) Negative, Urine Ketones Negative, Urine Blood 3+, Urine Nitrate Negative, Urine Bilirubin Negative, Urine Urobilinogen 0.2, Ur Leukocyte Esterase 2+ A, Urine RBC 50-100, Urine WBC 5-10, Ur Squamous Epith Cells 5-10, Urine Bacteria Trace I & O for Last 24 hours: Intake & Output 01/03/23 01/04/23 01/05/23 01/06/23 23:59 23:59 23:59 23:59 Intake Total 900 / 900 Output Total 600 / 600 Balance 300 / 300 Weight 244 lb Constitutional Constitutional: no acute distress *Routine HEENT Exam Head: Present normocephalic and atraumatic Eye: Absent conjunctivae pink ENT: Present mucous membranes moist *Routine Neck Exam Neck: Present full ROM *Routine Respiratory Exam Respiratory: Present CTA bilaterally and normal respiratory effort *Routine Cardiovascular Exam Cardiovascular: Present RRR *Routine Abdominal Exam Abdominal: Present soft and normoactive bowel sounds; Absent tenderness Comments: Uterine fundus firm and below umbilicus, pfannenstiel incision clean/dry/intact
== END 2023-01-06 15:00 | disposition home or self-care (01) | DRG 787 ==
LOC: OBOUT 16:53 → OB 16:53
PROVIDERS: Internal Medicine Adolescent Medicine; Admitting Provider Nurse Practitioner Obstetrics & Gynecology; PCP Nurse Practitioner Family; Visit Provider Nurse Practitioner Obstetrics & Gynecology
PROC: 10D00Z1 Extraction of Products of Conception, Low, Open Approach (ICD-10-PCS; CPT 59514; principal; 2023-01-04 03:00)
DX: O99.214 Obesity complicating childbirth (principal); D62 Acute posthemorrhagic anemia; R65.10 Systemic inflammatory response syndrome (SIRS) of non-infectious origin without acute organ dysfunction; Z3A.39 39 weeks gestation of pregnancy; Z37.0 Single live birth; O33.9 Maternal care for disproportion, unspecified; Z3A.40 40 weeks gestation of pregnancy; O90.81 Anemia of the puerperium; O72.1 Other immediate postpartum hemorrhage; O86.4 Pyrexia of unknown origin following delivery
CPT/HCPCS: 59514; 36415; 59025; 80048; 80053; 80305; 81001; 82962; 83605; 85007; 85014; 85018; 85025; 85048; 85049; 86850; 87040; 87086; 87636; 88302; 94761; 96374; C9290; G0283; G0463; J0696; J1756; J2405

== ENCOUNTER 2023-01-27 21:32 | Emergency (ER) | payer OTHER, SELFPAY ==
[2023-01-27 21:34] VITALS: BP 121/75; PULSE 69; RESP 18; TEMP 36.8; O2SAT 96; BMI 38.2
--- NOTE | 2023-01-27 22:02 | HMH.EDGENADL ---
Discharge Plan Disposition Patient Disposition: Home, Self-Care Referrals Follow up/Referrals: Patricia Gay APRN [Primary Care Provider] - See instructions Activity Restrictions/Add. Instructions Additional Instructions/Restrictions: Call your family doctor to establish care for this visit to the emergency department and schedule follow-up within 48 hours to ensure improvement. If you have any worsening of your condition or any other concerning signs or symptoms, return to the emergency department or your primary care doctor for further evaluation. Follow-up with your flask maker regarding this visit to the emergency department as needed. Clinical Impressions Clinical Impression: Dehiscence of incision Qualifiers: Encounter type: initial encounter Qualified Code(s): T81.31XA - Disruption of external operation (surgical) wound, not elsewhere classified, initial encounter Instructions Patient Instructions: DI for Laceration Repair Discharge ED Provider: Andres Gay General Adult HPI General Chief complaint: Wound/Laceration Stated complaint: 01/04 stitch poss opened Time Seen by Provider: 01/27/23 21:42 Mode of Arrival: Family Vehicle Source of Information: Patient Limitations: No Limitations Description of Symptoms (Recalled from ER Triage Doc. by RN): Pt had a on 01/04/2023 stated that on the right side of incision there is a small open place. A scant amount of blood has been seen from underwear rubbing. She denies fever, puss, smell, and or fever. History of Present Illness HPI narrative: Is a 18-year-old female with history of recent section delivery presenting with concern for open wound. Patient states that she noticed incision was open 1 day prior to arrival. No fevers or chills, purulent drainage, or pain associated. Just worried about it being open. Related Data Allergies Allergy/AdvReac Type Severity Reaction Status Date / Time povidone-iodine Allergy Mild Verified 01/27/23 21:50 [From Betadine] soap [From Betadine] Allergy Mild Verified 01/27/23 21:50 [facility] Disclaimer: The information contained in this section may have been updated after the patient was seen, as this information can be updated by other users. Medical History Acute blood loss anemia Surgical History History of section, classical Family History Other Hyperlipidemia Hypertension Social History Smoking Status: Never smoker alcohol intake: never substance use type: denies use current occupational status: employed Travel in the last 8 weeks: None household members: family housing: house number of children: 0 ROS Obtained: Yes All systems reviewed & no additional complaints except as documented Physical Exam General General appearance: alert, in no apparent distress and other ( ) Head Head exam: atraumatic and normocephalic Eye Eye exam: Present normal appearance, PERRL and EOMI ENT ENT exam: Present mucous membranes moist Neck Neck exam: Present normal inspection, full ROM and trachea midline Respiratory Respiratory exam: Absent respiratory distress, wheezes, stridor, accessory muscle use or prolonged expiratory phase Cardiovascular Cardiovascular exam: Present regular rate and normal rhythm Abdominal Exam Abdominal exam: Present soft; Absent distention, tenderness, guarding, rebound, rigidity or normal bowel sounds Comment: Lower abdominal incision well-healing. Right most portion gaping less than 1 cm. No secondary signs of infection Extremities Exam Extremities exam: Absent edema Neurological Exam Neurological exam: Present alert, oriented X3, CN II-XII intact and normal gait; Absent motor sensory deficit Skin Skin exam: Present warm and
[2023-01-27 22:30] VITALS: BP 129/73; PULSE 65; O2SAT 98
[2023-01-27 23:20] VITALS: BP 129/73; PULSE 65; RESP 18; TEMP 36.9; O2SAT 98
== END 2023-01-27 23:20 | disposition home or self-care (01) ==
PROVIDERS: Emergency Provider Emergency Medicine; PCP Nurse Practitioner Family
DX: O90.0 Disruption of cesarean delivery wound (principal)
CPT/HCPCS: 99282

== ENCOUNTER 2024-01-16 21:12 | Emergency (ER) | payer OTHER, SELFPAY ==
[2024-01-16 21:12] VITALS: BP 145/99; PULSE 83; RESP 22; TEMP 36.9; O2SAT 100; BMI 35.4
[2024-01-16] MEDS: LACTATED RINGERS 1000ML 1,000 ML 999 ML IV (21:22)
[2024-01-16] MEDS: ONDANSETRON 4MG/2ML VIAL 4 MG IV (21:26)
[2024-01-16] MEDS: MORPHINE 4MG/ML SYRINGE 4 MG IV (21:27)
[2024-01-16 21:30] LABS: Basophils # 0.1 K/mm3 (0-0.2); Basophils % 1.1 % (0.1-2.0); Eosinophils # 0.1 K/mm3 (0.0-0.4); Eosinophils % 0.8 % (0.1-12.0); Hematocrit 46.5 % (37.0-47.0); Hemoglobin 14.7 g/dL (12.2-16.2); Lymphocytes # 4.5 K/mm3 (0.7-4.5); Lymphocytes % 35.6 % (10-50); Mean Corpuscular HGB Conc 31.6 g/dL (31.8-35.4); Mean Corpuscular Hemoglobin 28.6 pg (27.0-31.2); Mean Corpuscular Volume 90.5 fl (81-99); Mean Platelet Volume 8.1 fl (7.4-10.4); Monocytes # 0.5 K/mm3 (0.1-1.0); Monocytes % 3.9 % (1.7-9.3); Neutrophils # 7.5 K/mm3 (1.8-7.8); Neutrophils % 58.6 % (37.0-80.0); Platelet Count 442 K/mm3 (142-424); Red Blood Count 5.13 M/mm3 (4.20-5.40); Red Cell Distribution Width 13.8 % (11.5-17.5); White Blood Count 12.7 K/mm3 (4.5-13.0)
--- NOTE | 2024-01-16 21:40 | ED_ITS ---
Discharge Plan Disposition Patient Disposition: Home, Self-Care Condition: Good Prescriptions Prescriptions: New ondansetron 4 mg tablet,disintegrating 4 mg PO Q8H PRN (Reason: nausea and vomiting) 5 Days Qty: 10 0RF meloxicam 7.5 mg tablet 7.5 mg PO DAILY 10 Days Qty: 10 0RF omeprazole 20 mg capsule,delayed release(DR/EC) 20 mg PO DAILY 28 Days Qty: 28 0RF No Action Nexplanon 68 mg implant 1 implant subdermal ONCE sertraline 50 mg Tablet 50 mg PO DAILY hydrocodone-acetaminophen 5-325 mg tablet 1 tab PO Q6H PRN (Reason: post-op pain) Qty: 17 0RF Referrals Follow up/Referrals: Provider,Referral, MD [Primary Care Provider] - See instructions Activity Restrictions/Add. Instructions Additional Instructions/Restrictions: As we discussed, your ultrasound did show that you have multiple stones in your gallbladder. Your liver enzymes in comparison to prior labs are slightly elevated to the 100s. Your CT scans including scans of your chest, abdomen, pelvis, did not show any abnormal findings. Given that your pain is improving, as is your nausea, and after discussion with the general surgeon Dr. Vega, you are stable for discharge at this time. He would like you to come to his office after discharge from the emergency department to discuss next steps. I have prescribed pain medication, stomach acid reducing medication, nausea medication for you to have and use as needed. Please return with any new or worsening symptoms. Clinical Impressions Clinical Impression: Abdominal pain, epigastric Cholelithiasis Qualifiers: Cholelithiasis location: gallbladder Cholecystitis presence: without cholecystitis Biliary obstruction: without biliary obstruction Qualified Code(s): K80.20 - Calculus of gallbladder without cholecystitis without obstruction Instructions Patient Instructions: DI for Acute Abdominal Pain Print Language Print Language: Slovak Discharge ED Provider: Julio Cesar Jj Adult HPI <Caty Veronica DO - Last Filed: 01/17/24 12:00> General Chief complaint: Abdominal Pain Stated complaint: upper abd pain Time Seen by Provider: 01/16/24 21:18 Mode of Arrival: Ambulatory Source of Information: Patient Limitations: No Limitations Description of Symptoms (Recalled from ER Triage Doc. by RN): pt reports upper abd pain that started about 20 mins ago, reports she thought she had gas so she attempted to make herself vomit, no help History of Present Illness HPI narrative: This patient is a 18-year-old female who denies significant past medical history presenting to the emergency department for evaluation with concern for severe epigastric pain and shortness of breath. She states that she thought maybe she had gas that she tried to make her self vomit, but the pain continued to get worse and she felt that she could not breathe. She arrives actively panicking, so history is difficult to obtain. On medical review, it looks like he has a history of section approximately a year ago. She denies any history of cardiopulmonary or abdominal issues Related Data Home Medications ?Medication ?Instructions ?Recorded ?Confirmed etonogestrel 68 mg subdermal 1 implant subdermal ONCE 03/15/23 01/18/24 implant (Nexplanon) sertraline 50 mg tablet 50 mg PO DAILY 01/18/24 01/18/24 Previous Rx's ?Medication ?Instructions ?Recorded meloxicam 7.5 mg tablet 7.5 mg PO DAILY 10 days #10 tabs 01/17/24 omeprazole 20 mg capsule,delayed 20 mg PO DAILY 28 days #28 caps 01/17/24 release ondansetron 4 mg disintegrating 4 mg PO Q8H PRN nausea and 01/17/24 tablet vomiting 5 days #10 tabs hydrocodone 5 mg-acetaminophen 325 1 tab PO Q6H PRN post-op pain #17 01/18/24 mg tablet tabs Allergies Allergy/AdvReac Type Severity Reaction Status Date / Time povidone-iodine Allergy Mild Verified 01/18/24 09:01 [From Betadine] soap [From Betadine] Allergy Mild Verified 01/18/24 09:01 [facility] <Caty Veronica, DO - Last Filed: 01/17/24 12:00> [facility] Disclaimer: The information contained in this section may have been updated after the patient was seen, as this information can be updated by other users. Medical History Acute blood loss anemia Nexplanon insertion 02/16/23 Surgical History History of section, classical Family History Other Hyperlipidemia Hypertension Social History Smoking Status: Never smoker alcohol intake: never substance use type: denies use current occupational status: employed Travel in the last 8 weeks: None household members: family housing: house number of children: 0 <Caty Veronica DO - Last Filed: 01/17/24 12:00> ROS Obtained: Yes All systems reviewed & no additional complaints except as documented Physical Exam <Caty Veronica DO - Last Filed: 01/17/24 12:00> General General appearance: alert and anxious Comment: Actively crying, panicking, hyperventilating Head Head exam: atraumatic and normocephalic Eye Eye exam: Present normal appearance, PERRL and EOMI ENT ENT exam: Present normal exam, normal oropharynx, mucous membranes moist and normal external ear exam Neck Neck exam: Present normal inspection, full ROM and trachea midline; Absent tenderness Chest Chest inspection: Present normal inspection and symmetric chest wall rise; Absent tenderness Respiratory Respiratory exam: Present normal lung sounds bilaterally; Absent respiratory distress, wheezes, stridor or accessory muscle use Cardiovascular Cardiovascular exam: Present normal rhythm and tachycardia Abdominal Exam Abdominal exam: Present soft and tenderness (Epigastric); Absent distention, guarding, rebound or rigidity Extremities Exam Extremities exam: Present normal inspection, full ROM and normal capillary refill; Absent tenderness or edema Back Exam Back exam: Present normal inspection and full ROM; Absent tenderness Neurological Exam Neurological exam: Present alert, oriented X3, CN II-XII intact and normal gait; Absent motor sensory deficit Psychiatric Psychiatric exam: Present anxious Skin Skin exam: Present warm and dry Medical Decision Making <Caty Veronica DO - Last Filed: 01/17/24 12:00> Medical Records Medical records reviewed: Yes I reviewed the patient's medical records. Arturo Inquiry Pt receiving controlled substance: No Vital Signs: 01/16/24 21:12 01/17/24 01:00 01/17/24 01:30 Temperature 98.4 F Temperature Source Oral Pulse Rate 71 68 Pulse Rate [Right] 83 Respiratory Rate 22 Blood Pressure 118/69 121/61 Blood Pressure [Right Arm] 145/99 H Blood Pressure Mean Blood Pressure Mean [Right Arm] 114 Blood Pressure Source Blood Pressure Source [Right Arm] Automatic Cuff Blood Pressure Position Blood Pressure Position [Right Arm] Sitting 02 Sat by Pulse Oximetry 100 99 99 Oxygen Delivery Method Room Air Room Air Room Air 01/17/24 02:00 01/17/24 02:30 01/17/24 03:00 Temperature Temperature Source Pulse Rate 69 68 63 Pulse Rate [Right] Respiratory Rate Blood Pressure 133/83 120/55 L 122/57 L Blood Pressure [Right Arm] Blood Pressure Mean Blood Pressure Mean [Right Arm] Blood Pressure Source Blood Pressure Source [Right Arm] Blood Pressure Position Blood Pressure Position [Right Arm] 02 Sat by Pulse Oximetry 100 98 97 Oxygen Delivery Method Room Air Room Air Room Air 01/17/24 03:30 01/17/24 04:00 01/17/24 04:30 Temperature Temperature Source Pulse Rate 75 65 58 L Pulse Rate [Right] Respiratory Rate Blood Pressure 112/56 L 112/61 115/58 L Blood Pressure [Right Arm] Blood Pressure Mean 70 72 73 Blood Pressure Mean [Right Arm] Blood Pressure Source Blood Pressure Source [Right Arm] Blood Pressure Position Blood Pressure Position [Right Arm] 02 Sat by Pulse Oximetry 96 96 96 Oxygen Delivery Method Room Air Room Air Room Air 01/17/24 05:30 01/17/24 06:00 01/17/24 06:30 Temperature Temperature Source Pulse Rate 60 55 L 58 L Pulse Rate [Right] Respiratory Rate Blood Pressure 118/66 109/62 L 123/72 Blood Pressure [Right Arm] Blood Pressure Mean 79 73 Blood Pressure Mean [Right Arm] Blood Pressure Source Blood Pressure Source [Right Arm] Blood Pressure Position Blood Pressure Position [Right Arm] 02 Sat by Pulse Oximetry 98 98 98 Oxygen Delivery Method Room Air Room Air 01/17/24 07:00 01/17/24 08:48 Temperature 98.1 F Temperature Source Oral Pulse Rate 61 70 Pulse Rate [Right] Respiratory Rate 16 Blood Pressure 126/78 133/76 Blood Pressure [Right Arm] Blood Pressure Mean Blood Pressure Mean [Right Arm] Blood Pressure Source Automatic Cuff Blood Pressure Source [Right Arm] Blood Pressure Position Sitting Blood Pressure Position [Right Arm] 02 Sat by Pulse Oximetry 100 Oxygen Delivery Method Room Air Lab Data Lab results reviewed: Yes I reviewed the patient's lab results. Lab Results 01/16/24 21:18: WBC 12.7, RBC 5.13, Hgb 14.7, Hct 46.5, MCV 90.5, MCH 28.6, MCHC 31.6 L, RDW 13.8, Plt Count 442 H, MPV 8.1, Neut % (Auto) 58.6, Lymph % (Auto) 35.6, Whitman % (Auto) 3.9, Eos % (Auto) 0.8, Baso % (Auto) 1.1, Neut # (Auto) 7.5, Lymph # (Auto) 4.5, Whitman # (Auto) 0.5, Eos # (Auto) 0.1, Baso # (Auto) 0.1, D- Dimer 0.27, Sodium 139, Potassium 3.1 L, Chloride 107, Carbon Dioxide 22, Anion Gap 13.1, BUN 10, Creatinine 0.60, Estimated Creat Clear 214, Estimated GFR 127, Est GFR ( Amer) 154, Glucose 106 H, Calcium 9.7, Total Bilirubin 0.4, AST 100 H, ALT 131 H, Alkaline Phosphatase 109, Troponin I < 0.01, Total Protein 7.9 D, Albumin 4.3, Globulin 3.6 H, Albumin/Globulin Ratio 1.2, Lipase 28, Serum HCG, Qual Negative 01/16/24 21:19: VBG pH 7.32, VBG pCO2 46.9, VBG pO2 46.0 H, VBG HCO3 23.6, VBG Total CO2 25.0, VBG O2 Saturation 79.7 H, VBG Base Excess -2.5 L, VBG Lactic Acid 4.4 H 01/16/24 21:40: SARS-CoV-2 (PCR) Not detected, Influenza A Untype (PCR) Not detected, Influenza Type B (PCR) Not detected 01/16/24 23:00: Urine Color Yellow, Urine Appearance Clear, Urine pH 7.0, Ur Specific [place] 1.025, Urine Protein Trace, Urine Glucose (UA) Negative, Urine Ketones Negative, Urine Blood Negative, Urine Nitrate Negative, Urine Bilirubin Negative, Urine Urobilinogen 0.2, Ur Leukocyte Esterase Negative, Urine RBC Occasional, Urine WBC 3-5, Ur Squamous Epith Cells 3-5, Urine Bacteria 2+, Urine Mucus Trace 01/16/24 21:18 01/16/24 21:18 Orders (Tests/Meds): ED MEDICATIONS Discontinued Medications Generic Name Dose Route Start Last Admin Trade Name Freq PRN Reason Stop Dose Admin Lactated Ringer's 1,000 mls @ 999 mls/hr 01/16/24 21:19 01/16/24 21:22 Lactated Ringer's 1000 Ml Bag IV 01/16/24 22:19 999 mls/hr .Q1H1M ONE Administration Iopamidol 85 ml 01/17/24 07:54 01/17/24 07:55 Iopamidol-370 (76%);100ml Bottle IV 01/17/24 07:55 85 ml ONCE ONE Administration Morphine Sulfate 4 mg 01/16/24 21:18 01/16/24 21:27 Morphine 4mg/Ml Syringe IV 01/16/24 21:19 4 mg ONCE ONE Administration Morphine Sulfate 4 mg 01/17/24 01:45 01/17/24 01:47 Morphine 4mg/Ml Syringe IV 01/17/24 01:46 4 mg ONCE ONE Administration Ondansetron HCl 4 mg 01/16/24 21:18 01/16/24 21:26 Ondansetron 4mg/2ml Vial IV 01/16/24 21:19 4 mg ONCE ONE Administration Sodium Chloride 10 ml 01/17/24 07:54 01/17/24 07:55 Sodium Chloride 0.9% 10ml Syr (Rad Only) IV 02/16/24 07:53 10 ml NEEDED PRN Administration Maintain IV Site Sodium Chloride 50 ml 01/17/24 07:54 01/17/24 07:54 0.9 % Sodium Chloride 50 Ml Vial IV 01/17/24 07:55 50 ml ONCE ONE Administration ORDERS Category Date Time Status CT abdomen pelvis w con Stat Cat Scan 01/16/24 21:57 Completed CTA Chest [CT angio chest PE protocol] Stat Cat Scan 01/16/24 21:57 Completed US abdomen limited Routine Exams 01/17/24 Completed CBC w/Auto Diff [Complete Blood Count Auto Diff] Stat Lab 01/16/24 21:18 Completed CMP [Comprehensive Metabolic Panel] Stat Lab 01/16/24 21:18 Completed D-Dimer Stat Lab 01/16/24 21:18 Completed Lipase Stat Lab 01/16/24 21:18 Completed Rapid PCR Covid and Flu A/B Stat Lab 01/16/24 21:40 Completed Serum [HCG Qualitative, Serum] Stat Lab 01/16/24 21:18 Completed Trop I [Troponin I] Stat Lab 01/16/24 21:18 Completed UA [Urinalysis and Microscopic] Stat Lab 01/16/24 23:00 Completed Urine Culture Stat Micro 01/16/24 23:00 Received VBG [Venous Blood Gas] Stat RT 01/16/24 21:19 Completed Medical Decision Narrative: In summary, this patient is a 18-year-old female presenting to the Emergency Department for evaluation of epigastric pain, chest pain, shortness of breath. She is actively panicking on arrival. Differential diagnoses considered include but are not limited to cholecystitis, pancreatitis, cholangitis, ACS, dysrhythmia, panic attack, PE, peptic ulcer disease, gastritis, gas, constipation. Ruling out the most morbid conditions drove assessment. I reviewed patient's past medical records and noted prior section as per HPI. On exam, the patient is anxious appearing, tearful, panicking. She is hyperventilating. She has epigastric tenderness on exam but otherwise exam is reassuring. Workup included CBC, CMP, lipase, lactic acid, VBG, troponin, D- dimer, urinalysis, test, viral swab, EKG. She was given a bolus of IV fluids as well as IV morphine and Zofran for symptomatic improvement. On reassessment of the patient is resting comfortably and feels much better. Labs were obtained that demonstrated transaminitis, AST & ALT of 100?s. Bilirubin WNL. Lipase is normal. Given this as well as the patient symptoms, will obtain CT abdomen pelvis with IV contrast. Given chest pain as well, will obtain CTA PE protocol. Troponin that was obtained initially is undetectable. EKG demonstrates normal sinus rhythm with sinus arrhythmia with a ventricular to [address] changes concerning for ischemia. Incomplete right bundle branch block noted. VBG demonstrated a mild respiratory acidosis as well as an elevated lactic of 4.39. Patient care was signed out to the oncoming provider, Dr. Stephenson, pending UA, test, and CT?s. <Donavon Stephenson MD - Last Filed: 01/17/24 23:28> Vital Signs: 01/16/24 21:12 01/17/24 01:00 01/17/24 01:30 Temperature 98.4 F Temperature Source Oral Pulse Rate 71 68 Pulse Rate [Right] 83 Respiratory Rate 22 Blood Pressure 118/69 121/61 Blood Pressure [Right Arm] 145/99 H Blood Pressure Mean Blood Pressure Mean [Right Arm] 114 Blood Pressure Source Blood Pressure Source [Right Arm] Automatic Cuff Blood Pressure Position Blood Pressure Position [Right Arm] Sitting 02 Sat by Pulse Oximetry 100 99 99 Oxygen Delivery Method Room Air Room Air Room Air 01/17/24 02:00 01/17/24 02:30 01/17/24 03:00 Temperature Temperature Source Pulse Rate 69 68 63 Pulse Rate [Right] Respiratory Rate Blood Pressure 133/83 120/55 L 122/57 L Blood Pressure [Right Arm] Blood Pressure Mean Blood Pressure Mean [Right Arm] Blood Pressure Source Blood Pressure Source [Right Arm] Blood Pressure Position Blood Pressure Position [Right Arm] 02 Sat by Pulse Oximetry 100 98 97 Oxygen Delivery Method Room Air Room Air Room Air 01/17/24 03:30 01/17/24 04:00 01/17/24 04:30 Temperature Temperature Source Pulse Rate 75 65 58 L Pulse Rate [Right] Respiratory Rate Blood Pressure 112/56 L 112/61 115/58 L Blood Pressure [Right Arm] Blood Pressure Mean 70 72 73 Blood Pressure Mean [Right Arm] Blood Pressure Source Blood Pressure Source [Right Arm] Blood Pressure Position Blood Pressure Position [Right Arm] 02 Sat by Pulse Oximetry 96 96 96 Oxygen Delivery Method Room Air Room Air Room Air 01/17/24 05:30 01/17/24 06:00 01/17/24 06:30 Temperature Temperature Source Pulse Rate 60 55 L 58 L Pulse Rate [Right] Respiratory Rate Blood Pressure 118/66 109/62 L 123/72 Blood Pressure [Right Arm] Blood Pressure Mean 79 73 Blood Pressure Mean [Right Arm] Blood Pressure Source Blood Pressure Source [Right Arm] Blood Pressure Position Blood Pressure Position [Right Arm] 02 Sat by Pulse Oximetry 98 98 98 Oxygen Delivery Method Room Air Room Air 01/17/24 07:00 01/17/24 08:48 Temperature 98.1 F Temperature Source Oral Pulse Rate 61 70 Pulse Rate [Right] Respiratory Rate 16 Blood Pressure 126/78 133/76 Blood Pressure [Right Arm] Blood Pressure Mean Blood Pressure Mean [Right Arm] Blood Pressure Source Automatic Cuff Blood Pressure Source [Right Arm] Blood Pressure Position Sitting Blood Pressure Position [Right Arm] 02 Sat by Pulse Oximetry 100 Oxygen Delivery Method Room Air Lab Data Lab Results 01/16/24 21:18: WBC 12.7, RBC 5.13, Hgb 14.7, Hct 46.5, MCV 90.5, MCH 28.6, MCHC 31.6 L, RDW 13.8, Plt Count 442 H, MPV 8.1, Neut % (Auto) 58.6, Lymph % (Auto) 35.6, Whitman % (Auto) 3.9, Eos % (Auto) 0.8, Baso % (Auto) 1.1, Neut # (Auto) 7.5, Lymph # (Auto) 4.5, Whitman # (Auto) 0.5, Eos # (Auto) 0.1, Baso # (Auto) 0.1, D- Dimer 0.27, Sodium 139, Potassium 3.1 L, Chloride 107, Carbon Dioxide 22, Anion Gap 13.1, BUN 10, Creatinine 0.60, Estimated Creat Clear 214, Estimated GFR 127, Est GFR ( Amer) 154, Glucose 106 H, Calcium 9.7, Total Bilirubin 0.4, AST 100 H, ALT 131 H, Alkaline Phosphatase 109, Troponin I < 0.01, Total Protein 7.9 D, Albumin 4.3, Globulin 3.6 H, Albumin/Globulin Ratio 1.2, Lipase 28, Serum HCG, Qual Negative 01/16/24 21:19: VBG pH 7.32, VBG pCO2 46.9, VBG pO2 46.0 H, VBG HCO3 23.6, VBG Total CO2 25.0, VBG O2 Saturation 79.7 H, VBG Base Excess -2.5 L, VBG Lactic Acid 4.4 H 01/16/24 21:40: SARS-CoV-2 (PCR) Not detected, Influenza A Untype (PCR) Not detected, Influenza Type B (PCR) Not detected 01/16/24 23:00: Urine Color Yellow, Urine Appearance Clear, Urine pH 7.0, Ur Specific [place] 1.025, Urine Protein Trace, Urine Glucose (UA) Negative, Urine Ketones Negative, Urine Blood Negative, Urine Nitrate Negative, Urine Bilirubin Negative, Urine Urobilinogen 0.2, Ur Leukocyte Esterase Negative, Urine RBC Occasional, Urine WBC 3-5, Ur Squamous Epith Cells 3-5, Urine Bacteria 2+, Urine Mucus Trace Orders (Tests/Meds): ED MEDICATIONS Discontinued Medications Generic Name Dose Route Start Last Admin Trade Name Freq PRN Reason Stop Dose Admin Lactated Ringer's 1,000 mls @ 999 mls/hr 01/16/24 21:19 01/16/24 21:22 Lactated Ringer's 1000 Ml Bag IV 01/16/24 22:19 999 mls/hr .Q1H1M ONE Administration Iopamidol 85 ml 01/17/24 07:54 01/17/24 07:55 Iopamidol-370 (76%);100ml Bottle IV 01/17/24 07:55 85 ml ONCE ONE Administration Morphine Sulfate 4 mg 01/16/24 21:18 01/16/24 21:27 Morphine 4mg/Ml Syringe IV 01/16/24 21:19 4 mg ONCE ONE Administration Morphine Sulfate 4 mg 01/17/24 01:45 01/17/24 01:47 Morphine 4mg/Ml Syringe IV 01/17/24 01:46 4 mg ONCE ONE Administration Ondansetron HCl 4 mg 01/16/24 21:18 01/16/24 21:26 Ondansetron 4mg/2ml Vial IV 01/16/24 21:19 4 mg ONCE ONE Administration Sodium Chloride 10 ml 01/17/24 07:54 01/17/24 07:55 Sodium Chloride 0.9% 10ml Syr (Rad Only) IV 02/16/24 07:53 10 ml NEEDED PRN Administration Maintain IV Site Sodium Chloride 50 ml 01/17/24 07:54 01/17/24 07:54 0.9 % Sodium Chloride 50 Ml Vial IV 01/17/24 07:55 50 ml ONCE ONE Administration ORDERS Category Date Time Status CT abdomen pelvis w con Stat Cat Scan 01/16/24 21:57 Completed CTA Chest [CT angio chest PE protocol] Stat Cat Scan 01/16/24 21:57 Completed US abdomen limited Routine Exams 01/17/24 Completed CBC w/Auto Diff [Complete Blood Count Auto Diff] Stat Lab 01/16/24 21:18 Completed CMP [Comprehensive Metabolic Panel] Stat Lab 01/16/24 21:18 Completed D-Dimer Stat Lab 01/16/24 21:18 Completed Lipase Stat Lab 01/16/24 21:18 Completed Rapid PCR Covid and Flu A/B Stat Lab 01/16/24 21:40 Completed Serum [HCG Qualitative, Serum] Stat Lab 01/16/24 21:18 Completed Trop I [Troponin I] Stat Lab 01/16/24 21:18 Completed UA [Urinalysis and Microscopic] Stat Lab 01/16/24 23:00 Completed Urine Culture Stat Micro 01/16/24 23:00 Received VBG [Venous Blood Gas] Stat RT 01/16/24 21:19 Completed Medical Decision Narrative: In summary, this patient is a 18-year-old female presenting to the Emergency Department for evaluation of epigastric pain, chest pain, shortness of breath. She is actively panicking on arrival. Differential diagnoses considered include but are not limited to cholecystitis, pancreatitis, cholangitis, ACS, dysrhythmia, panic attack, PE, peptic ulcer disease, gastritis, gas, constipation. Ruling out the most morbid conditions drove assessment. I reviewed patient's past medical records and noted prior section as per HPI. On exam, the patient is anxious appearing, tearful, panicking. She is hyperventilating. She has epigastric tenderness on exam but otherwise exam is reassuring. Workup included CBC, CMP, lipase, lactic acid, VBG, troponin, D- dimer, urinalysis, test, viral swab, EKG. She was given a bolus of IV fluids as well as IV morphine and Zofran for symptomatic improvement. On reassessment of the patient is resting comfortably and feels much better. Labs were obtained that demonstrated transaminitis, AST & ALT of 100?s. Bilirubin WNL. Lipase is normal. Given this as well as the patient symptoms, will obtain CT abdomen pelvis with IV contrast. Given chest pain as well, will obtain CTA PE protocol. Troponin that was obtained initially is undetectable. EKG demonstrates normal sinus rhythm with sinus arrhythmia with a ventricular to [address] changes concerning for ischemia. Incomplete right bundle branch block noted. VBG demonstrated a mild respiratory acidosis as well as an elevated lactic of 4.39. Patient care was signed out to the oncoming provider, Dr. Stephenson, pending UA, test, and CT?s. Seema JAMES: I assumed care of the patient at the time of handoff from the prior provider. On reassessment patient required additional morphine for pain control. Bedside ultrasound was performed with me and was nondiagnostic and images were not saved. CT images were independently turbid by me and showed a dilated gallbladder but no radiopaque stones, no pneumonia or PE in the chest. Given elevated liver enzymes, persistent right upper quadrant pain and inconclusive bedside ultrasound, patient was held in the ER for formal ultrasound in the morning. Patient care handoff to Dr. Jj pending formal ultrasound and reassessment. <Julio Cesar Jj MD - Last Filed: 01/18/24 10:39> Vital Signs: 01/16/24 21:12 01/17/24 01:00 01/17/24 01:30 Temperature 98.4 F Temperature Source Oral Pulse Rate 71 68 Pulse Rate [Right] 83 Respiratory Rate 22 Blood Pressure 118/69 121/61 Blood Pressure [Right Arm] 145/99 H Blood Pressure Mean Blood Pressure Mean [Right Arm] 114 Blood Pressure Source Blood Pressure Source [Right Arm] Automatic Cuff Blood Pressure Position Blood Pressure Position [Right Arm] Sitting 02 Sat by Pulse Oximetry 100 99 99 Oxygen Delivery Method Room Air Room Air Room Air 01/17/24 02:00 01/17/24 02:30 01/17/24 03:00 Temperature Temperature Source Pulse Rate 69 68 63 Pulse Rate [Right] Respiratory Rate Blood Pressure 133/83 120/55 L 122/57 L Blood Pressure [Right Arm] Blood Pressure Mean Blood Pressure Mean [Right Arm] Blood Pressure Source Blood Pressure Source [Right Arm] Blood Pressure Position Blood Pressure Position [Right Arm] 02 Sat by Pulse Oximetry 100 98 97 Oxygen Delivery Method Room Air Room Air Room Air 01/17/24 03:30 01/17/24 04:00 01/17/24 04:30 Temperature Temperature Source Pulse Rate 75 65 58 L Pulse Rate [Right] Respiratory Rate Blood Pressure 112/56 L 112/61 115/58 L Blood Pressure [Right Arm] Blood Pressure Mean 70 72 73 Blood Pressure Mean [Right Arm] Blood Pressure Source Blood Pressure Source [Right Arm] Blood Pressure Position Blood Pressure Position [Right Arm] 02 Sat by Pulse Oximetry 96 96 96 Oxygen Delivery Method Room Air Room Air Room Air 01/17/24 05:30 01/17/24 06:00 01/17/24 06:30 Temperature Temperature Source Pulse Rate 60 55 L 58 L Pulse Rate [Right] Respiratory Rate Blood Pressure 118/66 109/62 L 123/72 Blood Pressure [Right Arm] Blood Pressure Mean 79 73 Blood Pressure Mean [Right Arm] Blood Pressure Source Blood Pressure Source [Right Arm] Blood Pressure Position Blood Pressure Position [Right Arm] 02 Sat by Pulse Oximetry 98 98 98 Oxygen Delivery Method Room Air Room Air 01/17/24 07:00 01/17/24 08:48 Temperature 98.1 F Temperature Source Oral Pulse Rate 61 70 Pulse Rate [Right] Respiratory Rate 16 Blood Pressure 126/78 133/76 Blood Pressure [Right Arm] Blood Pressure Mean Blood Pressure Mean [Right Arm] Blood Pressure Source Automatic Cuff Blood Pressure Source [Right Arm] Blood Pressure Position Sitting Blood Pressure Position [Right Arm] 02 Sat by Pulse Oximetry 100 Oxygen Delivery Method Room Air Lab Data Lab Results 01/16/24 21:18: WBC 12.7, RBC 5.13, Hgb 14.7, Hct 46.5, MCV 90.5, MCH 28.6, MCHC 31.6 L, RDW 13.8, Plt Count 442 H, MPV 8.1, Neut % (Auto) 58.6, Lymph % (Auto) 35.6, Whitman % (Auto) 3.9, Eos % (Auto) 0.8, Baso % (Auto) 1.1, Neut # (Auto) 7.5, Lymph # (Auto) 4.5, Whitman # (Auto) 0.5, Eos # (Auto) 0.1, Baso # (Auto) 0.1, D- Dimer 0.27, Sodium 139, Potassium 3.1 L, Chloride 107, Carbon Dioxide 22, Anion Gap 13.1, BUN 10, Creatinine 0.60, Estimated Creat Clear 214, Estimated GFR 127, Est GFR ( Amer) 154, Glucose 106 H, Calcium 9.7, Total Bilirubin 0.4, AST 100 H, ALT 131 H, Alkaline Phosphatase 109, Troponin I < 0.01, Total Protein 7.9 D, Albumin 4.3, Globulin 3.6 H, Albumin/Globulin Ratio 1.2, Lipase 28, Serum HCG, Qual Negative 01/16/24 21:19: VBG pH 7.32, VBG pCO2 46.9, VBG pO2 46.0 H, VBG HCO3 23.6, VBG Total CO2 25.0, VBG O2 Saturation 79.7 H, VBG Base Excess -2.5 L, VBG Lactic Acid 4.4 H 01/16/24 21:40: SARS-CoV-2 (PCR) Not detected, Influenza A Untype (PCR) Not detected, Influenza Type B (PCR) Not detected 01/16/24 23:00: Urine Color Yellow, Urine Appearance Clear, Urine pH 7.0, Ur Specific [place] 1.025, Urine Protein Trace, Urine Glucose (UA) Negative, Urine Ketones Negative, Urine Blood Negative, Urine Nitrate Negative, Urine Bilirubin Negative, Urine Urobilinogen 0.2, Ur Leukocyte Esterase Negative, Urine RBC Occasional, Urine WBC 3-5, Ur Squamous Epith Cells 3-5, Urine Bacteria 2+, Urine Mucus Trace Orders (Tests/Meds): ED MEDICATIONS Discontinued Medications Generic Name Dose Route Start Last Admin Trade Name Frejanet PRN Reason Stop Dose Admin Lactated Ringer's 1,000 mls @ 999 mls/hr 01/16/24 21:19 01/16/24 21:22 Lactated Ringer's 1000 Ml Bag IV 01/16/24 22:19 999 mls/hr .Q1H1M ONE Administration Iopamidol 85 ml 01/17/24 07:54 01/17/24 07:55 Iopamidol-370 (76%);100ml Bottle IV 01/17/24 07:55 85 ml ONCE ONE Administration Morphine Sulfate 4 mg 01/16/24 21:18 01/16/24 21:27 Morphine 4mg/Ml Syringe IV 01/16/24 21:19 4 mg ONCE ONE Administration Morphine Sulfate 4 mg 01/17/24 01:45 01/17/24 01:47 Morphine 4mg/Ml Syringe IV 01/17/24 01:46 4 mg ONCE ONE Administration Ondansetron HCl 4 mg 01/16/24 21:18 01/16/24 21:26 Ondansetron 4mg/2ml Vial IV 01/16/24 21:19 4 mg ONCE ONE Administration Sodium Chloride 10 ml 01/17/24 07:54 01/17/24 07:55 Sodium Chloride 0.9% 10ml Syr (Rad Only) IV 02/16/24 07:53 10 ml NEEDED PRN Administration Maintain IV Site Sodium Chloride 50 ml 01/17/24 07:54 01/17/24 07:54 0.9 % Sodium Chloride 50 Ml Vial IV 01/17/24 07:55 50 ml ONCE ONE Administration ORDERS Category Date Time Status CT abdomen pelvis w con Stat Cat Scan 01/16/24 21:57 Completed CTA Chest [CT angio chest PE protocol] Stat Cat Scan 01/16/24 21:57 Completed US abdomen limited Routine Exams 01/17/24 Completed CBC w/Auto Diff [Complete Blood Count Auto Diff] Stat Lab 01/16/24 21:18 Completed CMP [Comprehensive Metabolic Panel] Stat Lab 01/16/24 21:18 Completed D-Dimer Stat Lab 01/16/24 21:18 Completed Lipase Stat Lab 01/16/24 21:18 Completed Rapid PCR Covid and Flu A/B Stat Lab 01/16/24 21:40 Completed Serum [HCG Qualitative, Serum] Stat Lab 01/16/24 21:18 Completed Trop I [Troponin I] Stat Lab 01/16/24 21:18 Completed UA [Urinalysis and Microscopic] Stat Lab 01/16/24 23:00 Completed Urine Culture Stat Micro 01/16/24 23:00 Received VBG [Venous Blood Gas] Stat RT 01/16/24 21:19 Completed Medical Decision Narrative: In summary, this patient is a 18-year-old female presenting to the Emergency Department for evaluation of epigastric pain, chest pain, shortness of breath. She is actively panicking on arrival. Differential diagnoses considered include but are not limited to cholecystitis, pancreatitis, cholangitis, ACS, dysrhythmia, panic attack, PE, peptic ulcer disease, gastritis, gas, constipation. Ruling out the most morbid conditions drove assessment. I reviewed patient's past medical records and noted prior section as per HPI. On exam, the patient is anxious appearing, tearful, panicking. She is hyperventilating. She has epigastric tenderness on exam but otherwise exam is reassuring. Workup included CBC, CMP, lipase, lactic acid, VBG, troponin, D- dimer, urinalysis, test, viral swab, EKG. She was given a bolus of IV fluids as well as IV morphine and Zofran for symptomatic improvement. On reassessment of the patient is resting comfortably and feels much better. Labs were obtained that demonstrated transaminitis, AST & ALT of 100?s. Bilirubin WNL. Lipase is normal. Given this as well as the patient symptoms, will obtain CT abdomen pelvis with IV contrast. Given chest pain as well, will obtain CTA PE protocol. Troponin that was obtained initially is undetectable. EKG demonstrates normal sinus rhythm with sinus arrhythmia with a ventricular to [address] changes concerning for ischemia. Incomplete right bundle branch block noted. VBG demonstrated a mild respiratory acidosis as well as an elevated lactic of 4.39. Patient care was signed out to the oncoming provider, Dr. Stephenson, pending UA, test, and CT?ml Stephenson MD: I assumed care of the patient at the time of handoff from the prior provider. On reassessment patient required additional morphine for pain control. Bedside ultrasound was performed with me and was nondiagnostic and images were not saved. CT images were independently turbid by me and showed a dilated gallbladder but no radiopaque stones, no pneumonia or PE in the chest. Given elevated liver enzymes, persistent right upper quadrant pain and inconclusive bedside ultrasound, patient was held in the ER for formal ultrasound in the morning. Patient care handoff to Dr. Jj pending formal ultrasound and reassessment. Julio Cesar Jj MD: I assumed care of this patient from the previous emergency medicine physician. Radiology performed ultrasound reveals findings consistent with cholelithiasis in the absence of acute cholecystitis. Given elevated liver enzymes, however total bilirubin within normal limits, as well as leukocytosis to 12.7, I believe there are reasonable grounds for concern for patient's pain representing acute cholecystitis. She does, however, upon repeat evaluation, denies any right upper quadrant pain, as well as any reported positive sonographic Zepeda sign. I discussed the case with general surgeon on-call who recommends patient present to clinic immediately after discharge from the emergency department to discuss further management. I discussed this plan with the patient was amenable. Return precautions given. Critical Care <Caty Veronica, DO - Last Filed: 01/17/24 12:00> Critical Care Time Critical Care Time: No
[2024-01-16 21:46] LABS: Alanine Aminotransferase 131 U/L (12-78); Albumin Level 4.3 g/dl (3.5-5.0); Albumin/Globulin Ratio 1.2 (1.1-1.8); Alkaline Phosphatase 109 U/L (38-126); Anion Gap 13.1 mEq/L (5-15); Aspartate Amino Transferase 100 U/L (14-36); Bilirubin,Total 0.4 mg/dl (0.2-1.3); Blood Urea Nitrogen 10 mg/dl (7-17); Calcium 9.7 mg/dl (8.4-10.2); Carbon Dioxide 22 mmol/L (22.0-30.0); Chloride 107 mmol/L (98-107); Creatinine Clearance Estimated 214 mL/min (50-200); Estimated Glomerular Filt Rate 127 ml/min (>60); GFR (African American) 154 ML/MIN (>60); Globulin 3.6 g/dL (1.3-3.2); Glucose 106 mg/dl (74-100); Lipase 28 U/L (23-300); Potassium 3.1 mmoL/L (3.5-5.1); Sodium 139 mmol/L (136-145); Total Protein,Serum 7.9 g/dl (6.3-8.2)
[2024-01-16 21:47] LABS: Coronavirus 19, PCR Not Detected (NotDetected); Influenza A, PCR Not Detected (NotDetected); Influenza B, PCR Not Detected (NotDetected)
--- NOTE | 2024-01-16 21:50 | PC.NURSE ---
Pt reports pain in epigastric area almost completely gone, aware
[2024-01-16 21:52] LABS: D-Dimer 0.27 ug/mL (0.0-0.5)
--- NOTE | 2024-01-16 21:57 | CT_ITS ---
PROCEDURE INFORMATION: Exam: CTA Chest With Contrast Exam date and time: 01/16/2024 11:34 PM Age: 18 years old Clinical indication: Pain; Chest pressure; Additional info: Chest and abd pain TECHNIQUE: Imaging protocol: Computed tomographic angiography of the chest with contrast. Exam focused on the arteries. 3D rendering (Not supervised by radiologist): MIP and/or 3D reconstructed images were created by the technologist. Radiation optimization: All CT scans at this facility use at least one of these dose optimization techniques: automated exposure control; mA and/or kV adjustment per patient size (includes targeted exams where dose is matched to clinical indication); or iterative reconstruction. Contrast material: ISOVUE; Contrast volume: 75 ml; Contrast route: INTRAVENOUS (IV); COMPARISON: US ABDOMEN LIMITED 09/15/2021 8:52 AM FINDINGS: Lungs: No acute finding. Liver: Normal. No mass. Gallbladder and biliary ducts: Normal. No calcified stones. No ductal dilation. Pancreas: Normal. No ductal dilation. Spleen: Normal. No splenomegaly. Adrenal glands: Normal. No mass. Kidneys and ureters: Normal. No hydronephrosis. Stomach and bowel: Unremarkable. No obstruction. No mucosal thickening. Appendix: No evidence of appendicitis. Intraperitoneal space: Unremarkable. No free air. No significant fluid collection. Vasculature: Unremarkable. No abdominal aortic aneurysm. Lymph nodes: Unremarkable. No enlarged lymph nodes. Urinary bladder: Unremarkable as visualized. Reproductive: There is a 3.7 cm left ovarian cyst. Bones/joints: Unremarkable. No acute fracture. Soft tissues: Unremarkable. IMPRESSION: 1. Unremarkable CTA. 2. 3.7 cm simple appearing left ovarian cyst. No further imaging is recommended. (Reference: Ousmane) REFERENCES: Ousmane et al. Management of Incidental Adnexal Findings on CT and MRI: A White Paper of the ACR Incidental Findings Committee, J Am Marga Radiol. 2019;17(2):248-254.
--- NOTE | 2024-01-16 21:57 | CT_ITS ---
PROCEDURE INFORMATION: Exam: CTA Chest With Contrast Exam date and time: 01/16/2024 11:34 PM Age: 18 years old Clinical indication: Pain; Chest pressure; Additional info: Chest and abd pain TECHNIQUE: Imaging protocol: Computed tomographic angiography of the chest with contrast. Exam focused on the arteries. 3D rendering (Not supervised by radiologist): MIP and/or 3D reconstructed images were created by the technologist. Radiation optimization: All CT scans at this facility use at least one of these dose optimization techniques: automated exposure control; mA and/or kV adjustment per patient size (includes targeted exams where dose is matched to clinical indication); or iterative reconstruction. Contrast material: ISOVUE; Contrast volume: 75 ml; Contrast route: INTRAVENOUS (IV); COMPARISON: US ABDOMEN LIMITED 09/15/2021 8:52 AM FINDINGS: Pulmonary arteries: Normal. No pulmonary emboli. Aorta: Unremarkable. No aortic aneurysm. No aortic dissection. Lungs: Unremarkable. No consolidation. No masses. Pleural spaces: Unremarkable. No pneumothorax. No pleural effusion. Heart: Unremarkable. No cardiomegaly. No pericardial effusion. Lymph nodes: Unremarkable. No enlarged lymph nodes. Bones/joints: Unremarkable. No acute fracture. Soft tissues: Unremarkable. IMPRESSION: No acute findings.
--- NOTE | 2024-01-16 22:01 | ECG_ITS ---
APPROVED REPORT Exam: Resting ECG HR:66 bpm ECG Measurements Heart Rate 66 AXES MS 173 P 64 QRSd 111 QRS 97 QT 407 T 66 QTc 420 Conclusion SINUS RHYTHM WITH SINUS ARRHYTHMIA BORDERLINE RIGHT AXIS DEVIATION [QRS AXIS > 90] INCOMPLETE RIGHT BUNDLE BRANCH BLOCK [90+ ms QRS DURATION, TERMINAL R IN V1/V2, 40+ ms S IN I/aVL/V4/V5/V6] BORDERLINE ECG Electronically signed by : YANDY CALDWELL, 01/19/2024 23:32:29
[2024-01-17] VITALS (13 sets, daily range): BP systolic 109–133; BP diastolic 55–83; PULSE 55–75; RESP 16; TEMP 36.7; O2SAT 96–100
--- NOTE | 2024-01-17 | US_ITS ---
FINAL REPORT CLINICAL HISTORY: RUQ PAIN FINDINGS: RIGHT UPPER QUADRANT ULTRASOUND Sonographic images of the right upper quadrant were obtained. The pancreas is partially obscured. There is mild fatty infiltration of the liver. Gallstones are seen in the dependent portion of the gallbladder. Incidental note is made of a pharyngeal cap on the gallbladder. The common duct measures 3 mm. Limited images of the right kidney are normal. IMPRESSION: Fatty liver. Gallstones. Reviewed, Interpreted and Dictated by Taj Parry MD Transcribed by Jolie Martino Authenticated and . [facility]
[2024-01-17] MEDS: MORPHINE 4MG/ML SYRINGE 4 MG IV (01:47)
--- NOTE | 2024-01-17 01:47 | PC.NURSE ---
Morphine 4mg IVP given, pt tolerated well
--- NOTE | 2024-01-17 02:30 | PC.NURSE ---
Provider at bedside talking with pt and doing bedside US, pt reports her pain is returning.
--- NOTE | 2024-01-17 02:40 | INFXCTL.NOTE ---
Pt reports pain resolved again after medication
[2024-01-17 03:23] LABS: Appearance,Urine CLEAR (Clear); Bilirubin,Urine Negative (Negative); Blood, Urine Negative (Negative); Color,Urine YELLOW (Yellow); Glucose,Urine (UA) Negative (Negative); Ketones,Urine Negative (Negative); Leukocyte Esterase,Urine Negative (Negative); Microscopic, Urine URINE MICROSCOPIC (MICROSCOPIC); Nitrate,Urine Negative (Negative); Protein,Urine TRACE (Negative); Specific Gravity, Urine 1.025 (1.005-1.030); Urobilinogen,Urine 0.2 EU/dl (0.2)
[2024-01-17 03:29] LABS: Bacteria,Urine 2+ /lpf; Mucus,Urine Trace /lpf; RBC,Urine Occasional #/hpf (0-3)
[2024-01-17 03:31] LABS: HCG Qualitative, Serum Negative (Negative)
[2024-01-17 03:33] LABS: Troponin I < 0.01 ng/ml (0.00-0.034)
--- NOTE | 2024-01-17 04:00 | PC.NURSE ---
resting on stretcher, VSS, continues to await US
[2024-01-17 07:17] LABS: VBG Base Excess -2.5 mmol/L (-2.4-2.3); VBG HCO3 23.6 mmol/L (23-30); VBG Oxygen Saturation 79.7 % (50-70); VBG PCO2 46.9 mmol/L (35-51); VBG PH 7.32 mmol/L (7.31-7.41)
[2024-01-17 07:18] LABS: Lactate Venous 4.4 mmol/L (0.4-2.0)
--- NOTE | 2024-01-17 07:21 | PC.NURSE ---
pt to US via wheelchair.
[2024-01-17] MEDS: 0.9 % SODIUM CHLORIDE 50 ML VIAL IV (07:54)
[2024-01-17] MEDS: SODIUM CHLORIDE 0.9% 10ML SYR (RAD ONLY) 10 ML IV (07:55)
[2024-01-17] MEDS: IOPAMIDOL-370 (76%);100ML BOTTLE 85 ML IV (07:55)
[2024-01-17 11:53] LABS: Reflex Lactic Add Lactic Reflex
== END 2024-01-17 08:52 | disposition home or self-care (01) ==
PROVIDERS: Emergency Medicine; Emergency Provider Emergency Medicine
DX: R10.13 Epigastric pain (principal); K80.20 Calculus of gallbladder without cholecystitis without obstruction; R06.02 Shortness of breath; R74.01 Elevation of levels of liver transaminase levels; I49.9 Cardiac arrhythmia, unspecified; R74.02 Elevation of levels of lactic acid dehydrogenase [LDH]; F41.0 Panic disorder [episodic paroxysmal anxiety]; R06.4 Hyperventilation
CPT/HCPCS: 71275; 74177; 76705; 80053; 81001; 82803; 83690; 84484; 84703; 85025; 85378; 87086; 87636; 93005; 96361; 96374; 96375; 96376; 99285; J2270; J2405; J7120; Q9967

== ENCOUNTER 2024-01-18 08:31 | Day surgery (SDC) | payer OTHER, SELFPAY ==
[2024-01-18] VITALS (10 sets, daily range): BP systolic 119–145; BP diastolic 67–84; PULSE 66–96; RESP 14–18; TEMP 36.2–37.1; O2SAT 95–99; BMI 37.2
[2024-01-18] MEDS: LACTATED RINGERS 1000ML 1,000 ML 25 ML IV (09:16)
--- NOTE | 2024-01-18 09:24 | EXP.ANES.CKL ---
[facility] Disclaimer: The information contained in this section may have been updated after the patient was seen, as this information can be updated by other users. Medical History Acute blood loss anemia Nexplanon insertion 02/16/23 Surgical History History of section, classical Family History Other Hyperlipidemia Hypertension Social History Smoking Status: Never smoker alcohol intake: never substance use type: denies use current occupational status: employed Travel in the last 8 weeks: None household members: family housing: house number of children: 0 [facility] Anesthesia Checklist Patient Identification Patient Identification: Arm Band, Family and Verbal (Name & ) Structural Data Admitted From: Home Planned Operative Procedure/s: Lap. eileen Consent for Planned Operative Procedure(s) Verified: Yes Verified Documents: Surgical Consent and History and Physical NPO Status Verified Time NPO: 21:00 Chart Verification Results Verified: CBC, BMP, ECG and HCG Additional verifications Fingerstick Blood Glucose: 80 Anesthesia Reactions: No Hx Blood Transfusions: No Blood Transfusion Reaction: No Cardiovascular Assessment Heart Sounds: S1 & S2 Pulse Rhythm: Irregular Peripheral Edema: No Airway Assessment Mallampati Score:: Class II C-Spine Mobility Assessed: Yes (FROM) TMJ Mobility Assessed: Yes Dentition: Good Dentition (Nothing loose per pt.) Neurological Assessment Level of Consciousness: Awake, Alert, Appropriate and Follows Commands Hx Seizures: No Numbness or tingling in extremities: No Anesthesia Plan Anesthesia Risk discussed: Yes Anesthesia Plan: Verified ASA Class: II Anesthesia Type: General
[2024-01-18] MEDS: CEFAZOLIN SODIUM 2 GM in 0.9 % SODIUM CHLORIDE 100 ML IV (10:25)
[2024-01-18] MEDS: LIDOCAINE 1% 20ML MDV 20 ML (10:34)
--- NOTE | 2024-01-18 11:13 | P.OP_ITS ---
Date of procedure: 01/18/24 Pre-op Diagnosis:: Chronic calculus cholecystitis Post-op Diagnosis:: Same Procedure performed:: Laparoscopic cholecystectomy Surgeon:: Riley Vega MD [employer]ATE:: Reilly Delgado Anesthesia: GETA Estimated blood loss (mL): 15 Operative findings:: Fairly severe pericholecystic fat stranding with adhesions to omentum, small bowel, colon, and stomach Infundibular thickening Operative note:: After informed consent was obtained, the patient was taken to the operating room and placed in the supine position. General anesthesia was induced and the abdomen was prepped and draped in a sterile fashion. After infiltration with local anesthetic an infraumbilical incision was made. A Veress needle was placed in position. The abdomen was insufflated. A 5 mm optical trocar was placed in position. Under direct visualization, a 12 mm trocar was placed in the subxiphoid position and 2 additional 5 mm trocars were placed in the right upper quadrant. The gallbladder was elevated up and over the liver margin. The tissue around the cystic duct was carefully dissected. 3 clips were placed proximally and the duct was transected with harmonic miranda. Harmonic miranda were then utilized to dissect the gallbladder away from the liver margin with careful attention to the control of the cystic artery. The gallbladder was placed in a retrieval bag and removed through the subxiphoid trocar site. The right upper quadrant was thoroughly irrigated. No active bleeding or bile leak was noted. Fascia at the subxiphoid trocar site was reapproximated utilizing the NeoClose device. The remaining trocars were removed. All wounds were irrigated and skin was closed with 4-0 Monocryl in a subcuticular fashion. Steri-Strips were applied. The patient's anesthetic agents were reversed and extubation was completed prior to transfer to recovery in stable condition. Condition: stable Disposition: PACU Specimens:: Gallbladder and contents Complications:: No immediate
--- NOTE | 2024-01-18 11:20 | EXP.ANES.I ---
[facility] Anesthesia Record Part I Anesthesia Record I Intake, IV Amount: 1,600 Hydration: Adequate Estimated blood loss (mL): 0 Urine output (mL): 0 Blood Pressure: 125/84 SaO2: 97 Pulse Rate: 90 Airway Patency: Patent Respiratory Rate: 14 Temperature: 98.7 F Patient is:: Awake and Stable Stable to PACU at:: 11:20
[2024-01-18] MEDS: MORPHINE 2MG/ML SYRINGE 2 MG IV ×2 (11:31→11:42)
[2024-01-19 06:37] LABS: POC Glucose,Bedside 80 (70-110)
--- NOTE | 2024-01-22 05:58 | EXP.ANES.II ---
[facility] Anesthesia Record Part II Anesthesia Record Part II Discharge Time: 11:59 Destination: Surgical Day Care (OP Surgery) PACU nurse assessment reviewed?: Yes Patient Condition:: Good Anesthesia Complications:: None Swallowing reflex intact?: Yes Airway Patency: Patent Cyanosis?: No Blood Pressure: 137/67 SaO2: 95 Respiratory Rate: 18 Pulse Rate: 67 Temperature: 97.1 F Mental Status: Alert & Oriented Pain level:: 4 Nausea and/or vomitting:: None Intake, IV Amount: 0 Hydration: Adequate
[2024-01-22 05:59] VITALS: BP 137/67; PULSE 67; RESP 18; TEMP 36.2; O2SAT 95
== END 2024-01-18 12:30 | disposition home or self-care (01) ==
PROVIDERS: Visit Provider Surgery
PROC: 0FT44ZZ Resection of Gallbladder, Percutaneous Endoscopic Approach (ICD-10-PCS; CPT 47562; principal; 2024-01-18 10:30)
DX: R10.11 Right upper quadrant pain (principal); R11.0 Nausea; K80.10 Calculus of gallbladder with chronic cholecystitis without obstruction
CPT/HCPCS: 47562; 82962; 96374; J0690; J1100; J1885; J2250; J2270; J2405; J2710; J3010; J7120